=== PATIENT | female | born 1965 | race Caucasian/White ===

== ENCOUNTER → 2023-09-23 15:59 | Outpatient (CLI) | payer BC, SELFPAY ==
--- NOTE | ~2023-09-23 | MM_ITS ---
EXAMINATION: MM screening marcelina BI w meli HISTORY: Screening mammogram TECHNIQUE: Craniocaudal and mediolateral oblique 3-D tomosynthesis images were obtained and synthetic 2-D images were generated. CAD analysis was submitted and interpreted. COMPARISON: No prior mammogram is available for comparison at this institution. BREAST PARENCHYMAL COMPOSITION: The breasts are almost entirely fatty. FINDINGS: RIGHT BREAST: There is a low-density mass in the anterior third of the outer breast 4 cm from the nip ple. LEFT BREAST: No suspicious mass, calcification, or architectural distortion are identified to suggest malignancy. IMPRESSION: 1. Right breast mass which may represent the patient's baseline however no comparison is currently av ailable. 2. Comparison with prior mammograms is necessary. BI-RADS Category 0: Incomplete: Needs comparison with prior mammograms. Reviewed, dictated and finalized at location A. PRIOR AUTHORIZATION IMPRESSION: 1. Right breast mass which may represent the patient's baseline however no comp arison is currently available. 2. Comparison with prior mammograms is necessary. BI-RADS Category 0: Incomplete: Needs comparison with prior mammograms.
== END ==
PROVIDERS: PCP Family Medicine; Visit Provider Nurse Practitioner Obstetrics & Gynecology
DX: Z12.31 Encounter for screening mammogram for malignant neoplasm of breast (principal); R92.8 Other abnormal and inconclusive findings on diagnostic imaging of breast
CPT/HCPCS: 77063; 77067

== ENCOUNTER 2024-09-20 01:25 | Day surgery (SDC) | payer BC, SELFPAY ==
[2024-09-10 10:13] VITALS: BMI 32.1
[2024-09-20 07:53] VITALS: BP 140/80; PULSE 76; RESP 18; TEMP 36.2; O2SAT 98
[2024-09-20 08:05] LABS: Glucose Point of Care 132 mg/dl (65-105)
[2024-09-20] MEDS: LACTATED RINGERS 1,000 ML 150 ML IV CONT (08:05)
--- NOTE | 2024-09-20 08:23 | PM.HPGS ---
History of Present Illness History of Present Illness Consent: Risks, benefits, and alternatives have been discussed and questions answered. Patient agrees to proceed with procedure. Chief complaint: Neoplasm screening Narrative: Qian Adams is a 59 year old female here for screening colonoscopy, last one 2013 Review of Systems Review of Systems: All systems reviewed & are unremarkable except as noted in HPI and below PMFSH Past Medical History Medical History (Updated 09/20/24 @ 08:23 by Louie Nino MD) Anxiety Colon cancer screening Diabetes type 2, controlled History of thyroid cancer Hyperlipidemia Hypertension ANURAG (obstructive sleep apnea) Palpitations Surgical History Surgical History (Updated 09/19/24 @ 10:08 by Joey Bruce DO) History of appendectomy History of History of thyroidectomy Family History Family History (Updated 07/09/12 @ 09:20 by DOCTOR UNKNOWN) Other Diabetes mellitus Family history of cardiovascular disease Social History Social History Smoking status: Never smoker Alcohol intake: current Living arrangements: with family Spiritual care concerns: No Meds Home Medications and Allergies Home Medications Medication Instructions Recorded Confirmed Type Juice Plus multivitamin 1 tab-cap PO DAILY 09/10/24 09/20/24 History cholecalciferol (vitamin D3) 50 50 mcg PO DAILY 09/10/24 09/20/24 History mcg (2,000 unit) capsule (Vitamin D3) levothyroxine 112 mcg tablet 112 mcg PO DAILY 09/10/24 09/20/24 History (Synthroid) lisinopril 10 mg tablet 10 mg PO DAILY 09/10/24 09/20/24 History metformin 500 mg tablet,extended 500 mg PO BID 09/10/24 09/20/24 History release 24 hr montelukast 10 mg tablet 10 mg PO DAILY 09/10/24 09/20/24 History omeprazole 40 mg capsule,delayed 40 mg PO DAILY 09/10/24 09/20/24 History release rosuvastatin 20 mg tablet 20 mg PO DAILY 09/10/24 09/20/24 History venlafaxine 75 mg capsule,extended 75 mg PO DAILY 09/10/24 09/20/24 History release 24 hr Allergies Allergy/AdvReac Type Severity Reaction Status Date / Time morphine Allergy Severe ITCHING Verified 09/20/24 07:52 latex Allergy Unknown Itching Verified 09/20/24 07:52 Vital Signs Vital Signs - 24 hr 09/20/24 07:53 Temperature 97.1 F L Pulse Rate 76 Respiratory Rate 18 Blood Pressure 140/80 Pulse Oximetry 98 Oxygen Delivery Room Air Exam Const: General: comfortable and no acute distress HENMT: Face/Nose/Sinus: Normal nares present Eyes: General: appearance normal, both eyes and all related structures Neck: Neck: no JVD Resp: Auscultation: clear to auscultation bilaterally Cardio: Rate: regular rate Rhythm: regular rhythm GI: Inspection: non-distended GI Palp: Yes Soft to palpation Skin: General skin exam: normal color Neuro: General: gait normal Speech: normal speech Extrem: General: normal to inspection Psych: Mental Status: mental status grossly normal Assessment and Plan Assessment and plan (1) Colon cancer screening: Code(s): Z12.11 - Encounter for screening for malignant neoplasm of colon Status: Acute Assessment and Plan: colonoscopy
--- NOTE | 2024-09-20 08:24 | P.PNAN_ITS ---
Anes - Initial Pre Proc Eval Procedure: Operation Date: 09/20/24 09:00 Proposed Procedures p Screening Colonoscopy - Louie Nino MD Date/Time: 09/20/24 08:24 Surgeon: Louie Nino MD Pre Op Diagnosis: Neoplasm screening Patient Data Age: 59 Gender: F Height: 1.7 m Weight: 90.9 kg Last Vital Signs Temp 36.2 C L 09/20/24 07:53 Pulse 76 09/20/24 07:53 Resp 18 09/20/24 07:53 BP 140/80 09/20/24 07:53 Pulse Ox 98 09/20/24 07:53 O2 Del Method Room Air 09/20/24 07:53 Allergies Allergy/AdvReac Type Severity Reaction Status Date / Time morphine Allergy Severe ITCHING Verified 09/20/24 07:52 latex Allergy Unknown Itching Verified 09/20/24 07:52 Home Medications Medication Instructions Recorded Confirmed Type Juice Plus multivitamin 1 tab-cap PO DAILY 09/10/24 09/20/24 History cholecalciferol (vitamin D3) 50 50 mcg PO DAILY 09/10/24 09/20/24 History mcg (2,000 unit) capsule (Vitamin D3) levothyroxine 112 mcg tablet 112 mcg PO DAILY 09/10/24 09/20/24 History (Synthroid) lisinopril 10 mg tablet 10 mg PO DAILY 09/10/24 09/20/24 History metformin 500 mg tablet,extended 500 mg PO BID 09/10/24 09/20/24 History release 24 hr montelukast 10 mg tablet 10 mg PO DAILY 09/10/24 09/20/24 History omeprazole 40 mg capsule,delayed 40 mg PO DAILY 09/10/24 09/20/24 History release rosuvastatin 20 mg tablet 20 mg PO DAILY 09/10/24 09/20/24 History venlafaxine 75 mg capsule,extended 75 mg PO DAILY 09/10/24 09/20/24 History release 24 hr Laboratory Tests 09/20/24 08:02 POC Capillary Glucose 132 H mg/dl (65-105) Patient hx anesthesia problems: none Family hx anesthesia problems: none Results Review: All pre-operative results and documents have been reviewed as part of the pre- operative evaluation. [facility] Past Medical History Medical History Anxiety Diabetes type 2, controlled History of thyroid cancer Hyperlipidemia Hypertension ANURAG (obstructive sleep apnea) Palpitations Surgical History Surgical History History of appendectomy History of History of thyroidectomy Family History Family History Other Diabetes mellitus Family history of cardiovascular disease Social History Social History Smoking status: Never smoker Alcohol intake: current Living arrangements: with family Spiritual care concerns: No Anes - Eval Final PreProcedure Day of Procedure 09/20/24 08:24 Patient weight: obese Heart: regular rate and rhythm Lungs: clear to auscultation Airway: Mallampati scale class II Neurological: alert and oriented Last oral intake: >/= 8 hours ASA classification: III Emergent: no Anesthetic plan: proceed Anesthesia type and monitoring: general GIVS Results Review: All pre-operative results and documents have been reviewed as part of the pre- operative evaluation. Informed Consent: The patient's anesthetic plan and its attendant risks and benefits were discussed with the patient/family/POA. Questions were solicited and answers provided to the satisfaction of the patient/family/POA.
[2024-09-20 08:42] VITALS: BP 120/75; PULSE 86; RESP 16; O2SAT 94
[2024-09-20 08:52] VITALS: BP 121/75; PULSE 83; RESP 21; O2SAT 98
[2024-09-20 09:02] VITALS: BP 131/86; PULSE 80; RESP 18; O2SAT 100
== END 2024-09-20 09:08 | disposition home or self-care (01) ==
PROVIDERS: PCP Family Medicine; Referring Provider Nurse Practitioner Family; Visit Provider Internal Medicine Gastroenterology
PROC: 0DJD8ZZ Inspection of Lower Intestinal Tract, Via Natural or Artificial Opening Endoscopic (ICD-10-PCS; CPT 45378; principal; 2024-09-20 09:00)
DX: Z12.11 Encounter for screening for malignant neoplasm of colon (principal); E11.9 Type 2 diabetes mellitus without complications; E78.5 Hyperlipidemia, unspecified; I10 Essential (primary) hypertension; G47.33 Obstructive sleep apnea (adult) (pediatric); F41.9 Anxiety disorder, unspecified; E89.0 Postprocedural hypothyroidism; E66.9 Obesity, unspecified; Z68.31 Body mass index [BMI] 31.0-31.9, adult; Z79.84 Long term (current) use of oral hypoglycemic drugs
CPT/HCPCS: 45378; 82948; J2704; J7120

== ENCOUNTER 2024-11-05 15:15 | Outpatient (CLI) | payer BC, SELFPAY ==
--- NOTE | ~2024-11-05 | MM_ITS ---
EXAMINATION: MM screening marcelina BI w meli HISTORY: Screening TECHNIQUE: Craniocaudal and mediolateral oblique 3-D tomosynthesis images were obtained and synthetic 2-D images were generated. CAD analysis was submitted and interpreted. COMPARISON: 09/23/2023 and dating back to 09/21/2020 BREAST PARENCHYMAL COMPOSITION: There are scattered areas of fibroglandular density. FINDINGS: Punctate calcifications detected bilaterally, stable and benign in appearance, dermal in or igin. Stable parenchymal pattern without suspicious microcalcifications, architectural distortion, discrete masses or significant asymmetry. IMPRESSION: 1. No mammographic evidence of malignancy. 2. Recommend routine screening mammography in one year. Reviewed, dictated and finalized at location A. P CAPTAIN
== END 2024-11-05 15:16 | disposition home or self-care (01) ==
PROVIDERS: PCP Family Medicine; Visit Provider Obstetrics & Gynecology
DX: Z12.31 Encounter for screening mammogram for malignant neoplasm of breast (principal)
CPT/HCPCS: 77063; 77067

== ENCOUNTER 2025-11-07 13:46 | Outpatient (CLI) | payer BC, SELFPAY ==
--- OUTSIDE RECORDS SUMMARY | 2024-08-08 03:00 | XMS_ITS ---
Author Organization [facility] Address [address] [place] [address] Care Team Providers Care Sybase Developer Name Role Phone Dr. Bridgette Rodriguez Primary Care Provider [phone] Migration, Provider Unavailable Unavailable REASON FOR VISIT EMR-[facility] Immunizations Vaccine Route Administration Date Status Comme nts Pfizer-[employer]ion[employer] Covid-19 Vaccine 1st dose Unknown 08/08/2024 [facility]ered [facility] VFC Code: : Influenza, seasonal, injectable, preservative free, 3 yrs and above Unknown 08/08/2024 [facility] VFC Code: : Encounters Encounter Location Date Provider Diagnosis [facility] [address] [place] [address] 08/08/2024 Provider Migration Plan Of Treatment Next Appt Details Provider Name:Dr. Bridgette chapman, 04/05/2026 11:00:00 AM, [address] [facility] [facility], [place], [address], [phone] Progress Notes * CHICOJATINJayyB:1965 (60 yo F)Acc No.[id number]:08/08/2024 Patient: Qian Stephenson Provider: Fidelina smith Migration :1965 A ge:59 Y S ex:Female Date:08/08/2024 Phone: Address:[address] [place], [place]-[address] Pcp:Dr. 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
--- OUTSIDE RECORDS SUMMARY | 2024-09-28 09:00 | XMS_ITS ---
Author Organization [facility] Address [address] [place] [address] Care Team Providers Care Yard Hand Name Role Phone Dr. Bridgette Rodriguez Primary Care Provider [phone] Bridgette Zavala Unavailable [phone] REASON FOR VISIT Med Check Vital Signs Temperature 97.2 degrees Fahrenheit 09/28/20 24 Blood pressure systolic 128 mm Hg 09/28/20 24 Blood pressure diastolic 78 mm Hg 024 Heart Rate 85 /min 09/28/2024 Weight 205.29 lbs 09/28/2024 Oximetry 95 % 09/28/2024 Weight-kg 93.12 kg 09/28/2024 Encounters Encounter Location Date Provider Diagnosis [address] [address] 09/28/2024 Bridgette Zavala Mixed hyperlipidemia E78.2 ; Type 2 diabetes mellitus without complications E11.9 ; Unspecified mononeuropathy of bilateral lower limbs G57.93 ; Essential (primary) hypertension I10 ; Hypothyroidism, unspecified E03.9 ; Anxiety disorder, unspecified F41.9 ; Other obesity due to excess calories E66.09 and Gastro-esophageal reflux disease without esophagitis K21.9 Assessments Encounter Date Diagnosis (ICD Code) Assessment Notes Treatment Notes Treatment Clinical Notes Section Notes 09/28/2024 Mixed hyperlipidemia (ICD-10 - E78.2) 09/28/2024 Type 2 diabetes mellitus without complications (ICD-10 - E11.9) 09/28/2024 Unspecified mononeuropathy of bilateral lower limbs (ICD-10 - G57.93) 09/28/2024 Essential (primary) hypertension (ICD-10 - I10) 09/28/2024 Hypothyroidism, unspecified (ICD-10 - E03.9) 09/28/2024 Anxiety disorder, unspecified (ICD-10 - F41.9) 09/28/2024 Other obesity due to excess calories (ICD-10 - E66.09) 09/28/2024 Gastro-esophageal reflux disease without esophagitis (ICD-10 - K21.9) Plan Of Treatment Next Appt Details Provider Name:Dr. Bridgette chapman, 04/05/2026 11:00:00 AM, [address], [place], [address], [phone] Progress Notes * Yosi VERASaDOB:1965 (60 yo F)Acc No.[id number]:09/28/2024 Patient: Qian Stephenson Provider: Savana Zavala NP :1965 A ge:59 Y S ex:Female Date:09/28/2024 Phone: Address:[address] [place] [id number] Pcp:Dr. Bridgette Rodriguez Subjective: * Chief Complaints: * M ed Check Objective: * Vitals: B P: 128/78 mm Hg, HR: 85 /min, Temp: 97.2 F, Oxygen sat %: 95 %, Wt: 205.29 lbs, Wt-k.12 kg. Past Vitals:* 02/09/2024 BP: 122/76 mm Hg, HR: 70 /mi n, Oxygen sat %: 96 %, Wt: 209.99 lbs, Wt-k.25 kg * 08/13/2023 BP: 130/80 mm Hg, HR: 72 /mi n, Oxygen sat %: 98 %, Wt: 206.99 lbs, Wt-k.89 kg Assessment: * Assessment: 1. H ypothyroidism, unspecified - E03.9 S pecify :Src Diagnosis Name: Hypothyroidism, unspecified type 2 . T ype 2 diabetes mellitus without complications - E11.9 S pecify :Src Diagnosis Name: (E11.9 - ) Type 2 diabetes mellitus without complications 3 . O ther obesity due to excess calories - E66.09 S pecify :Src Diagnosis Name: Class 1 obesity due to excess calories with serious comorbidity and body mass index (BMI) of 30.0 to 30.9 in adult 4 . M ixed hyperlipidemia - E78.2 S pecify :Src Diagnosis Name: (E78.2 - ) Mixed hyperlipidemia 5 . A nxiety disorder, unspecified - F41.9 S pecify :Src Diagnosis Name: Anxiety and depression 6 . E ssential (primary) hypertension - I10 7 . G mike-esophageal reflux disease without esophagitis - K21.9 S pecify :Src Diagnosis Name: (K21.9 - ) Gastro-esophageal reflux disease without esophagitis 8 . U nspecified mononeuropathy of bilateral lower limbs - G57.93 ?Specify :Src Diagnosis Name: Neuropathy involving both lower extremities * Electronic signature of Akila Zavala on 11/07/2025 at 01:58 PM PIER WORKER Sign off status: Pending * Provider: Savana Zavala NP Date: 11/28/2023 Generated for Brenda bell/Lewis/Olegario on: 01:58 PM PIER WORKER
--- OUTSIDE RECORDS SUMMARY | 2024-10-09 03:00 | XMS_ITS ---
Author Organization [facility] Address [address] [place] [address] Care Team Providers Care Tax Economist Name Role Phone Dr. Bridgette Rodriguez Primary Care Provider [phone] Migration, Provider Unavailable Unavailable REASON FOR VISIT EMR-Will Encounters Encounter Location Date Provider Diagnosis [facility] [address] [place] [address] 10/09/2024 Provider Migration Plan Of Treatment Medication Medication Name Sig Start Date Stop Date Notes Black Elderberry 460-115 mg Capsule Oral; Duration: 0 04/19/2021 03/04/2022 ,discontinuere ason:Dis continued *Pick strength-form from [employer] for eRX* Venlafaxine HCl ER 75 MG Capsule Extended Release 24 Hour 1 Oral every day; Duration: 90 02/09/2024 02/09/2024 Rx Refill Request,discontinuerea son:Refilled Montelukast Sodium 10 MG Tablet 1 Oral every evening; Duration: 90 08/30/2023 08/30/2023 Rx Refill Request,discontinuerea son:Refilled Zinc oral; Duration: 0 03/05/2022 08/12/2023 ,discon tinuereason:Dis continued *Pick strength-form from [employer] for eRX* Metoprolol Succinate ER 25 MG Tablet Extended Release 24 Hour 1 Oral; Duration: 30 03/05/2022 12/16/2022 ,discontinuereason:D is continued Omeprazole 40 MG Capsule Delayed Release 1 Oral every day; Duration: 90 03/15/2024 03/15/2024 Rx Refill Request,discontinuerea son:Refilled OneTouch Ultra Test ; Duration: 0 09/30/2024 09/30/2024 *Amparo stevens from [facility] for eRx and Interaction Alerts* Medrol 4 MG Tablet Therapy Pack Oral; Duration: 0 12/20/2021 12/20/2021 Lisinopril 10 MG Tablet 1 Oral every day ; Duration: 08/12/2023 08/12/2023 Rx Refill Request,discontinuerea son:Refilled Effexor XR 37.5 MG Capsule Extended Release 24 Hour 1 Oral every day; Duration: 14 04/18/2022 05/01/2022 Venlafaxine HCl ER 37.5 MG Capsule Extended Release 24 Hour 1 Oral every day; Duration: 0 04/19/2021 04/19/2021 ,discontinuereason:D is continued Diclofenac Sodium 75 MG Tablet Delayed Release 1 Oral two times a day; Duration: 03/12/2022 06/09/2022 busPIRone HCl 7.5 MG Tablet 2 Oral three times a day; Duration: 08/24/2021 09/06/2021 ,discontinuereason:D is continued,PRN Reason:for anxiety Crestor 5 MG Tablet 1 Oral every night at bedtime; Duration: 0 04/19/2021 08/09/2021 Rx Refill Request,discontinuerea son:Refilled busPIRone HCl 5 MG Tablet 1-2 Oral two times a day; Duration: 10/02/2021 04/17/2022 ,discontinuereason:D is continued metFORMIN HCl ER 500 MG Tablet Extended Release 24 Hour 1 Oral two times a day; Duration: 12/11/2022 12/11/2022 Rx Refill Request,discontinuerea son:Refilled Zithromax Z-Greg 250 MG Tablet Oral; Duration: 0 10/13/2021 10/21/2021 ,discontinuere ason:Dis continued buPROPion HCl 75 MG Tablet 1 Oral every day; Duration: 04/09/2022 04/17/2022 going back to effexor,discontinuerea son:Discontinued Metoprolol Succinate ER 50 MG Tablet Extended Release 24 Hour 1 Oral every night at bedtime; Duration: 0 10/22/2021 03/04/2022 decreased by cardiology,discontinue reason:Discontinued Rosuvastatin Calcium 5 MG Tablet Oral; Duration: 08/09/2021 03/04/2022 increased to 20mg daily,discontinuereaso n:Discontinued Vitamin C oral; Duration: 0 04/19/2021 02/08/2024 ,discon tinuereason:Dis continued *Pick strength-form from [employer] for eRX* Wellbutrin XL 150 MG Tablet Extended Release 24 Hour 1 Oral every day; Duration: 30 03/12/2022 04/17/2022 ,discontinuereason:D is continued LORazepam 0.5 MG Tablet 1 Oral every day ; Duration: 0 04/18/2022 08/12/2023 ,discontinuereason:D is continued,PRN Reason:for anxiety traMADol HCl 50 MG Tablet 1-2 Oral every 6-8 hours; Duration: 0 12/20/2021 04/17/2022 ,discontinuereason:D is continued,PRN Reason:for pain Aspirin Adult Low Strength 81 MG Tablet Delayed Release 1 Oral every day; Duration: 0 04/19/2021 04/17/2022 ,discontinuereason:D is continued Macrobid 100 MG Capsule 1 Oral every 12 hours; Duration: 7 03/22/2023 03/28/2023 predniSONE 20 MG Tablet 3 Oral every day ; Duration: 3 04/01/2023 04/03/2023 EpiPen 2-Greg 0.3 MG/0.3ML Solution Auto-injector Injection; Duration: 0 05/17/2024 05/17/2024 ALPRAZolam 0.25 MG Tablet 1 or 2 Oral Q6H; Duration: 0 09/17/2021 09/17/2021 Effexor XR 75 MG Capsule Extended Release 24 Hour 1 Oral every day; Duration: 06/26/2022 06/26/2022 Rx Refill Request,discontinuerea son:Refilled Escitalopram Oxalate 10 MG Tablet 1 Oral every day; Duration: 01/07/2022 04/17/2022 going back to effexor,discontinuerea son:Discontinued Next Appt Details Provider Name:Dr. Bridgette chapman, 04/05/2026 11:00:00 AM, [address] [facility], [place], [address], [phone] Progress Notes * Vickie VERAS:1965 (60 yo F)Acc No.[id number]:10/09/2024 Patient: Qian CARDOZO :1965 A ge:59 Y S ex:Female Phone: Address:[address] [place] [address], [place], [address] * Refills Stop Diclofenac Sodium Tablet Delayed Release, 75 MG, Oral, 60, 1, two times a day, 30 Stop Omeprazole Capsule Delayed Release, 40 MG, Oral, 90, 1, every day, 90 Stop metFORMIN HCl ER Tablet Extended Release 24 Hour, 500 MG, Oral, 180, 1, two times a day, 90 Stop Escitalopram Oxalate Tablet, 10 MG, Oral, 90, 1, every day, 90 Stop Montelukast Sodium Tablet, 10 MG, Oral, 90, 1, every evening, 90 Stop Montelukast Sodium Tablet, 10 MG, Oral, 90, 1, every evening, 90 Stop Omeprazole Capsule Delayed Release, 40 MG, Oral, 90, 1, every day, 90 Stop Omeprazole Capsule Delayed Release, 40 MG, Oral, 90, 1, every day, 90 Stop Metoprolol Succinate ER Tablet Extended Release 24 Hour, 25 MG, Oral, 1, 30 Stop OneTouch Ultra Test, 100, 0 Stop ALPRAZolam Tablet, 0.25 MG, Oral, 15, 1 or 2, Q6H, 0 Stop buPROPion HCl Tablet, 75 MG, Oral, 30, 1, every day, 30 Stop Zithromax Z-Greg Tablet, 250 MG, Oral, 6, 0 Stop busPIRone HCl Tablet, 5 MG, Oral, 60, 1-2, two times a day, 30 Stop EpiPen 2-Greg Solution Auto-injector, 0.3 MG/0.3ML, Injection, 0 Stop Lisinopril Tablet, 10 MG, Oral, 90, 1, every day, 90 Stop OneTouch Ultra Test, 100, 0 Stop metFORMIN HCl ER Tablet Extended Release 24 Hour, 500 mg, Oral, 1, every day, 0 Stop Crestor Tablet, 5 MG, Oral, 1, every night at bedtime, 0 Stop Effexor XR Capsule Extended Release 24 Hour, 37.5 MG, Oral, 14, 1, every day, 14 Stop Medrol Tablet Therapy Pack, 4 MG, Oral, 21, 0 Stop Montelukast Sodium Tablet, 10 MG, Oral, 1, every evening, 0 Stop Omeprazole Capsule Delayed Release, 40 MG, Oral, 90, 1, every day, 90 Stop Venlafaxine HCl ER Capsule Extended Release 24 Hour, 75 MG, Oral, 1, every day, 0 Stop Venlafaxine HCl ER Capsule Extended Release 24 Hour, 75 MG, Oral, 90, 1, every day, 90 Stop Venlafaxine HCl ER Capsule Extended Release 24 Hour, 75 MG, Oral, 90, 1, every day, 90 Stop Black Elderberry Capsule, 460-115 mg, Oral, 0 Stop Escitalopram Oxalate Tablet, 10 MG, Oral, 30, 0 Stop Lisinopril Tablet, 10 MG, Oral, 1, every day, 0 Stop Medrol Tablet Therapy Pack, 4 MG, Oral, 21, 0 Stop Metoprolol Succinate ER Tablet Extended Release 24 Hour, 50 MG, Oral, 1, every night at bedtime, 0 Stop ALPRAZolam Tablet, 0.25 MG, Oral, 15, 1 or 2, Q6H, 0 Stop Escitalopram Oxalate Tablet, 10 MG, Oral, 30, 1, every day, 30 Stop Macrobid Capsule, 100 MG, Oral, 14, 1, every 12 hours, 7 Stop Vitamin C, oral, 0 Stop Wellbutrin XL Tablet Extended Release 24 Hour, 150 MG, Oral, 30, 1, every day, 30 Stop Metoprolol Succinate ER Tablet Extended Release 24 Hour, 25 MG, Oral, 1, every night at bedtime, 0 Stop Venlafaxine HCl ER Capsule Extended Release 24 Hour, 75 MG, Oral, 90, 1, every day, 90 Stop buPROPion HCl Tablet, 75 MG, Oral, 30, 1, every day, 30 Stop Effexor XR Capsule Extended Release 24 Hour, 75 MG, Oral, 90, 1, every day, 90 Stop Lisinopril Tablet, 10 MG, Oral, 90, 1, every day, 90 Stop predniSONE Tablet, 20 MG, Oral, 18, 3, every day, 3 Stop Lisinopril Tablet, 10 MG, Oral, 90, 1, every day, 90 Stop traMADol HCl Tablet, 50 MG, Oral, 15, 1-2, every 6-8 hours, 0 Stop Aspirin Adult Low Strength Tablet Delayed Release, 81 MG, Oral, 1, every day, 0 Stop buPROPion HCl Tablet, 75 MG, Oral, 7, 1, every day, 7 Stop busPIRone HCl Tablet, 7.5 MG, Oral, 90, 1, three times a day, 30 Stop metFORMIN HCl ER Tablet Extended Release 24 Hour, 500 MG, Oral, 180, 1, two times a day, 90 Stop EpiPen 2-Greg Solution Auto-injector, 0.3 MG/0.3ML, Injection, 2, 0 Stop Escitalopram Oxalate Tablet, 10 MG, Oral, 30, 1, every day, 30 Stop LORazepam Tablet, 0.5 MG, Oral, 10, 1, every day, 0 Stop Venlafaxine HCl ER Capsule Extended Release 24 Hour, 75 MG, Oral, 90, 1, every day, 90 Stop Montelukast Sodium Tablet, 10 MG, Oral, 90, 1, every evening, 90 Stop Omeprazole Capsule Delayed Release, 40 MG, Oral, 1, every day, 0 Stop Zinc, oral, 0 Stop metFORMIN HCl ER Tablet Extended Release 24 Hour, 500 mg, Oral, 180, 1, two times a day, 90 Stop metFORMIN HCl ER Tablet Extended Release 24 Hour, 500 mg, Oral, 180, 1, two times a day, 90 Stop metFORMIN HCl ER Tablet Extended Release 24 Hour, 500 MG, Oral, 180, 1, two times a day, 90 Stop Venlafaxine HCl ER Capsule Extended Release 24 Hour, 75 MG, Oral, 90, 1, every day, 90 Stop busPIRone HCl Tablet, 7.5 MG, Oral, 90, 2, three times a day, 30 Stop Venlafaxine HCl ER Capsule Extended Release 24 Hour, 37.5 MG, Oral, 1, every day, 0 Stop Venlafaxine HCl ER Capsule Extended Release 24 Hour, 75 MG, Oral, 90, 90 Stop Venlafaxine HCl ER Capsule Extended Release 24 Hour, 75 MG, Oral, 90, 1, every day, 90 Stop Effexor XR Capsule Extended Release 24 Hour, 75 MG, Oral, 30, 1, every day, 30 Stop Escitalopram Oxalate Tablet, 10 MG, Oral, 30, 1, every day, 30 Stop Rosuvastatin Calcium Tablet, 5 MG, Oral, 90, 90 Subjective: * Chief Complaints: * E MR-Will Objective: Past Vitals:* 09/28/2024 BP: 128/78 mm Hg, HR: 85 /mi n, Oxygen sat %: 95 %, Wt: 205.29 lbs, Wt-k.12 kg * 02/09/2024 BP: 122/76 mm Hg, HR: 70 /mi n, Oxygen sat %: 96 %, Wt: 209.99 lbs, Wt-k.25 kg * * Date:
--- OUTSIDE RECORDS SUMMARY | 2024-10-10 03:00 | XMS_ITS ---
Author Organization [facility] dicine Address [address] [place] [address] Care Team Providers Care Behavioral Health Care Manager Name Role Phone Dr. Bridgette Rodriguez Primary Care Provider [phone] Migration, Provider Unavailable Unavailable Allergies Allergen (clinical drug ingredient) Drug/Non Drug Allergy documented on EMR Reaction Allergy Type Onset Date Status Latex Latex (uncoded) Unknown Allergy 04/18/2022 Act mike Honey Bee Venom swelling Drug Allergy 04/19/2021 Active metoprolol Metoprolol hair loss Drug Allergy 12/17/2022 Acti ve REASON FOR VISIT EMR-Will Medications Medication SIG (Take, Route, Frequency, Duration) Notes Start Date End Date Status Vitamin D3 50 MCG (1999 UT) Tablet Oral; Duration: 0 04/19/2021 Active Lisinopril 10 MG Tablet 1 Oral every day; Duration: 08/05/2024 11/02/2024 Active Montelukast Sodium 10 MG Tablet 1 Oral every evening; Duration: 08/25/2024 08/19/2025 Active Rosuvastatin Calcium 20 MG Tablet 1 Oral every night at bedtime; Duration: 0 10/22/2021 Active metFORMIN HCl ER 500 MG Tablet Extended Release 24 Hour 1 Oral two times a day; Duration: 12/02/2023 11/25/2024 Active Omeprazole 40 MG Capsule Delayed Release 1 Oral every day; Duration: 09/04/2024 03/02/2025 Active Venlafaxine HCl ER 75 MG Capsule Extended Release 24 Hour 1 Oral every day; Duration: 08/06/2024 02/01/2025 Active Synthroid 137 MCG Tablet Oral; Duration: 0 04/19/2021 Active Multi Vitamin oral; Duration: 0 *Pick strength-form from [facility] for eRX* 04/18/2022 Active Social History Social History Additional Details Category Social Info Options Details Migrated Social History Migrated Social History 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 Bridgette chapman, 04/05/2026 11:00:00 AM, [address], [place], [address], [phone] Progress Notes * Yosi VERASaDOB:1965 (60 yo F)Acc No.[id number]:10/10/2024 Patient: Qian CARDOZO :1965 A ge:59 Y S ex:Female Phone: Address:[facility] [employer] , [place], [address] Subjective: * Chief Complaints: * E MR-Will * Surgical History: section delivery _ Colonoscopy ,notes : 2013 _ Thyroidectomy ,notes : 04/2013 _ Cholecystectomy ,notes : 06/2012 _ Appendectomy ,notes : 09/2012 _ * Family History: F ather: Diabetes mellitus Type 2, H yperlipidemia, H ypertension, S udden Cardiac . M other: Cholelithiasis, H yperlipidemia, H ypertension, H ypothyroidism. G randmother: Maternal Grandmother: Deep vein thrombosis. B rother: Anxiety, C oronary Artery Disease (CAD). S on: Anxiety. 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 * Medications: T akingVitamin D3 50 MCG (1999) Tablet Oral Rosuvastatin Calcium 20 MG Tablet 1 Oral every night at bedtime Venlafaxine HCl ER 75 MG Capsule Extended Release 24 Hour 1 Oral every day , stop date 02/01/2025metFORMIN HCl ER 500 MG Tablet Extended Release 24 Hour 1 Oral two times a day , stop date 11/25/2024Montelukast Sodium 10 MG Tablet 1 Oral every evening , stop date 08/19/2025Synthroid 137 MCG Tablet Oral Omeprazole 40 MG Capsule Delayed Release 1 Oral every day , stop date 03/02/2025Multi Vitamin oral , Notes to Pharmacist: *Pick strength-form from [facility] for eRX*Lisinopril 10 MG Tablet 1 Oral every day , stop date 11/02/2024Taking Vitamin D3 50 MCG (1999 UT) Tablet Oral Taking Rosuvastatin Calcium 20 MG Tablet 1 Oral every night at bedtime Taking Venlafaxine HCl ER 75 MG Capsule Extended Release 24 Hour 1 Oral every day , stop date 02/01/2025Taking metFORMIN HCl ER 500 MG Tablet Extended Release 24 Hour 1 Oral two times a day , stop date 11/25/2024Taking Montelukast Sodium 10 MG Tablet 1 Oral every evening , stop date 08/19/2025Taking Synthroid 137 MCG Tablet Oral Taking Omeprazole 40 MG Capsule Delayed Release 1 Oral every day , stop date 03/02/2025Taking Multi Vitamin oral , Notes to Pharmacist: *Pick strength-form from [facility] for [facility]*Taking Lisinopril 10 MG Tablet 1 Oral every day , stop date 11/02/2024 * Allergies: L atex: Allergy - Onset Date 04/18/2022Honey Bee Venom: swelling - Allergy - Onset Date 04/19/2021Metoprolol: hair loss - Allergy - Onset Date 12/17/2022 Objective: Past Vitals:* 09/28/2024 BP: 128/78 mm Hg, HR: 85 /mi n, Oxygen sat %: 95 %, Wt: 205.29 lbs, Wt-k.12 kg * 02/09/2024 BP: 122/76 mm Hg, HR: 70 /mi n, Oxygen sat %: 96 %, Wt: 209.99 lbs, Wt-k.25 kg * * Date:
--- NOTE | ~2025-11-07 | MM_ITS ---
EXAMINATION: MM screening marcelina BI w meli HISTORY: Screening. TECHNIQUE: Craniocaudal and mediolateral oblique 3-D tomosynthesis images were obtained and synthetic 2-D images were generated. CAD analysis was submitted and interpreted. COMPARISON: 2023, 2022, and 2021 BREAST PARENCHYMAL COMPOSITION: Not Dense: There are scattered areas of fibroglandular tissue FINDINGS: No suspicious masses are seen. There are no suspicious calcifications. No unexplained architectural distortion is seen. There are no skin or nipple abnormalities identified. There is no adenopathy seen on the images submitted. IMPRESSION: No mammographic evidence to suggest malignancy is seen. The patient may return to screening mammography as per ACR guidelines. BI-RADS 1 - Negative. Reviewed, dictated and finalized at location C. TIC SURGERY COORDINATOR
--- OUTSIDE RECORDS SUMMARY | 2025-11-07 13:59 | XMS_ITS | Clinical Summary ---
Author Organization [facility] Address [address] [place] [address] Care Team Providers Care Software Tester Name Role Phone Abram Mohan MD Primary Care Provider Uziel Cerna MD, Barry Unavailable [phone] Allergies Active Allergy Reactions Criticality Noted Date Comments Atorvastatin Myalgias 04/19/2016 Bee Venom Anaphylaxis High 01/10/2016 Latex Unknown Low 12/06/2013 Skin irritation. Medications metFORMIN ER, OSM, 500 MG 24 hr tablet Take 2 tablets (1,000 mg total) by mouth daily. 10/16/2011 Active Multiple Vitamins-Mineral s (MULTIVITAMIN ADULT OR) Take by mouth daily. 03/16/2008 Active omeprazole 40 MG capsule Take 1 capsule (40 mg total) by mouth daily. 04/28/2021 Active Nutritional Supplements (JUICE PLUS FIBRE) Liquid Active montelukast 10 MG tablet Take 1 tablet (10 mg total) by mouth daily. 09/05/2021 Active SYNTHROID 112 MCG tablet Take 1 tablet (112 mcg total) by mouth before breakfast. 09/19/2022 Active venlafaxine XR (EFFEXOR-XR) 37.5 MG 24 hr capsule Take 1 capsule (37.5 mg total) by mouth daily. 04/18/2022 Active lisinopril (PRINIVIL) 10 MG tablet Take 1 tablet (10 mg total) by mouth daily. Active rosuvastatin (CRESTOR) 20 MG tablet Take 1 tablet (20 mg total) by mouth nightly at bedtime. 90 tablet 3 05/23/2025 Active Active Problems Problem Noted Date Diagnosed Date NSVT (nonsustained ventricular tachycardia) 07/13 Palpitations 04/14/2018 Dyslipidemia HTN (hypertension) Family History Medical History Relation Comments Breast Cancer Maternal Aunt Breast Cancer Maternal cousin Relation Status Comments Maternal Aunt Maternal cousin Social History Tobacco Use Types Packs/Day Years Used Date Smoking Tobacco: Never Smokeless Tobacco: Never Comments No Sex and Gender Information Value Date Recorded Sex Assigned at Not on file Legal Sex Female 10:29 PM CDT Gender Identity Female 01/28/2022 9:06 AM CDT Sexual Orientation Not on file Last Filed Vital Signs Vital Sign Reading Time Taken Comments Blood Pressure 120/86 04/14/2025 1:21 PM CDT Pulse 72 04/14/2025 1:21 PM CDT Temperature 37.1 C (98.8 F) 01/14/2022 3:25 PM AUTOMOTIVE REFINISH TECHNICIAN Respiratory Rate 16 04/14/2025 1:21 PM CDT Oxygen Saturation 94% 04/14/2025 1:21 PM CDT Inhaled Oxygen Concentration - - Weight 90.9 kg (200 lb 6.4 oz) 04/14/2025 1:21 P M CDT Height 171.5 cm (5' 7.5) 04/14/2025 1:21 PM CDT Body Mass Index 30.92 04/14/2025 1:21 PM CDT Plan of Treatment Upcoming Encounters Date Type Department Care Team (Late st Contact Info) Description 04/27/2026 11:00 AM CDT Office Visit [facility] [place] [address] Calvin Thompson NP [address] [address] Health Maintenance Due Date Last Done Comments Cervical Cancer Screening Pap Smear (Age 30 to 64) Every 3 Years 1965 Colorectal Cancer Screening Colonoscopy (10 Years) 1965 Annual Physical 1966 Hepatitis C 1981 Cervical Cancer Screening Pap with HPV Testing (Age 30 to 64) Every 5 Years 1993 Cervical Cancer Screening with HPV 1993 Pneumococcal Vaccine: 50+ Years (2 of 2 - PCV) 12/25/2018 12/25/2017 Mammogram Screening 10/14/2024 10/14/2022, 08/13/2013, 04/02/2013, Additional history exists COVID-19 Vaccine ( season) 2025 08/08/2024, 11/15/2023, 08/21/2022, Additional history exists Influenza Adult (#1) 2025 08/08/2024, 08/24/2023, 08/21/2022, Additional history exists DTaP, Tdap and Td Vaccines (5 - Td or Tdap) 12/26/2034 12/26/2024, 11/13/2020, 09/19/2020, Additional history exists RSV Immunization or 60+ Years (1 - 1-dose 75+ series) 2038 Hepatitis A Vaccines Aged Out 11/26/2002, 03/16/20 02 No longer eligible based on patient's age to complete this topic Zoster Vaccines Completed 10/05/2022, 03/10/2022 Meningococcal B Vaccine Aged Out No l onger eligible based on patient's age to complete this topic Meningococcal Vaccine Aged Out No veronika curtis eligible based on patient's age to complete this topic RSV Immunizations Under 20 Months Aged Out No longer eligible based on patient's age to complete this topic Procedures Procedure Name Priority Date/Time Associated Diagnosis Comments HEALTH FAIR WITH LIPID Routine 08/30/2025 6:00 AM CDT [facility] HEMOGLOBIN A1C Routine 08/30/2025 6:00 AM CDT MG SCREENING W GILLES ZINA DIGI Routine 10/14/2022 3:52 PM AUTOMOTIVE REFINISH TECHNICIAN Encounter for screening mammogram for malignant neoplasm of breast from Last 3 Months or Most Recently Relevant to Health Maintenance Results * (ABNORMAL) HEALTH FAIR WITH LIPID (08/30/2025 6:00 AM CDT) GLUCOSE 130(H) 70 - 99 MG/DL 08/30/2025 6:31 PM CDT [facility] BUN 13 7 - 18 MG/DL 08/30/2025 6:31 PM CDT [facility] SODIUM S/P/B 138 136 - 145 MMOL/L 08/30/2025 6:31 PM CDT [facility] POTASSIUM S/P/B 4.0 3.5 - 5.1 MMOL/L 08/30/2025 6:31 PM CDT [facility] CHLORIDE S/P/B 103 97 - 115 MMOL/L 08/30/2025 6:31 PM CDT [facility] CO2 29.0 21 - 32 MMOL/L 08/30/2025 6:31 PM CDT [facility] CREATININE S/P/B 0.76 0.55 - 1.02 MG/DL 08/30/2025 6:31 PM CDT [facility] CALCIUM S/P/B 9.2 8.5 - 10.1 MG/DL 08/30/2025 6:31 PM CDT [facility] ALBUMIN S/P/B 3.9 3.4 - 5.0 G/DL 08/30/2025 6:31 PM CDT [facility] TOTAL PROTEIN S/P/B 7.5 6.4 - 8.2 G/DL 08/30/2025 6:31 PM T [facility] BILIRUBIN TOTAL S/P/B 0.9 0.2 - 1.2 MG/DL 08/30/2025 6:31 PM CDT [facility] Comment: THIS ASSAY IS NOT RECOMMENDED FOR PATIENTS UNDERGOING TREATMENT WITH ELTROMBOPAG DUE TO THE POTENTIAL FOR FALSELY ELEVATED RESULTS. ALT 27 14 - 55 U/L 08/30/2025 6:31 PM CDT [facility] AST 23 15 - 37 U/L 08/30/2025 6:31 PM T [facility] ALKALINE PHOSPHATASE S/P/B 78 50 - 136 U/L 08/30/2025 6:31 PM [facility] A/G RATIO 1.1 1.0 - 2.0 RATIO 08/30/2025 6:31 PM [facility] GFR ESTIMATE 89(L) >90 ML/MIN/1. 73 M2 08/30/2025 6:31 PM [facility] Comment: NOTE: eGFR is not calculated for patients <18 years of age or gender unknown. This is an estimated GFR calculation using the new CKD EPI creatinine equation without race and so does not require a correction factor for race. This estimated GFR should not be used for calculating drug doses. CHOLESTEROL 133 <200 MG/DL 08/30/2025 6:31 PM [facility] TRIGLYCERIDES 132 <150 MG/DL 08/30/2025 6:31 PM [facility] HDL 52 >40.0 MG/DL 08/30/2025 6:31 PM [facility] LDL (CALCULATED) 55 <100 MG/DL 08/30/2025 6:31 PM [facility] Comment:CALCULATED USING THE FRIEDEWALD EQUATION NON HDL CHOLESTEROL 81 <130 MG/DL 08/30/2025 6:31 PM [facility] CHOL/HDL RATIO 2.6 0.0 - 4.5 08/30/2025 6:31 PM [facility] VLDL CALCULATION 26 5 - 55 MG/DL 08/30/2025 6:31 PM [facility] LIPID INTERPRETATION 08/30/2025 6:31 PM [facility] Comment: NIH CONCENSUS REPORT RECOMMENDATIONS: ADULT CHILD LOW RISK: CHOLESTEROL <200 <170 TRIGLYCERIDE <150 --- HDL >=60 --- LDL <100 <110 BORDERLINE: CHOLESTEROL 200-239 170-199 TRIGLYCERIDE 150-199 --- HDL 40-59 --- LDL 100-159 110-129 HIGH RISK: CHOLESTEROL >=240 >=200 TRIGLYCERIDE >=200 --- HDL <40 --- LDL >=160 >=130 TSH 0.288(L) 0.358 - 3.74 uIU/ML 08/30/2025 6:31 PM CDT [facility] Comment: HIGH DOSES OF BIOTIN MAY INTERFERE WITH THIS TEST RESULT. CORRELATION TO CLINICAL HISTORY AND PRESENTATION RECOMMENDED. WBC 8.00 4.50 - 11.00 x10'3/uL 08/30/2025 8:26 AM CDT [facility] RBC 4.25 4.00 - 5.20 x10'6/uL 08/30/2025 8:26 AM CDT [facility] HGB 12.4 12.0 - 16.0 G/DL 08/30/2025 8:26 AM CDT [facility] HCT 37.5(L) 38.0 - 48.0 % 08/30/2025 8:26 AM CDT [facility] MCV 88.2 80.0 - 100.0 FL 08/30/2025 8:26 AM CDT [facility] MCH 29.2 26.0 - 34.0 PG 08/30/2025 8:26 AM CDT [facility] MCHC 33.1 31.0 - 37.0 G/DL 08/30/2025 8:26 AM CDT [facility] PLT 349 130 - 400 x10'3/uL 08/30/2025 8:26 AM CDT [facility] 08/30/2025 6:00 AM CDT us Ab Hudson MD LABORATORY Final Result [facility] [address] [place] [address], [facility] [address] [place] [address], * (ABNORMAL) HEMOGLOBIN A1C (08/30/2025 6:00 AM CDT) HGB A1C 6.4(H) <5.7 % 08/31/2025 6:55 PM CDT [facility] Comment: ADA GUIDELINES 2010 5.7 TO 6.4% INCREASED RISK OF DIABETES > OR = 6.5% CONSISTENT WITH DIABETES ESTIMATED AVG GLUCOSE 137 mg/dL 08/31/2025 6:55 PM CDT [facility] 08/30/2025 6:00 AM CDT Ab Hudson MD LABORATORY Final Result [facility] [address] [place] [address], [place] [phone] * MG SCREENING W GILLES ZINA DIGI (10/14/2022 3:52 PM AUTOMOTIVE REFINISH TECHNICIAN) Anatomical Region Laterality Modality Breast Bilateral Computed Tomogra phy, Other 10/14/2022 4:16 PM AUTOMOTIVE REFINISH TECHNICIAN Narrative 10/14/2022 4:24 PM AUTOMOTIVE REFINISH TECHNICIAN IMAGING STUDIES: Bilateral screening mammograms with computer-aided detection with 2-D and 3-D imaging. Tomosynthesis. DATE: 10/14/2022 3:29 PM HISTORY: Encounter for screening mammogram for malignant neoplasm of breast . COMPARISON: 09/21/2019. 09/24/2021 TISSUE TYPE: There are scattered areas of fibroglandular density. FINDINGS: 1. Mild scattered fibroglandular tissue pattern is present. Benign calcifications. Stable benign nodule within the inferior and lateral right retroareolar region. 2. No malignant microcalfcifications, new dominant masses, or architectural distortion. 3. No skin thickening or nipple retraction. Axillary regions are within normal limits. IMPRESSION: 1. No mammographic evidence of malignancy. 2. Assessment: ACR BI-RADS 2 - BENIGN FINDING(S) 3 .Routine Screening Bilateral MQSA BI-RADS Categories: Category 0 - needs additional imaging evaluation. Category 1 - negative. Category 2 - benign findings. Category 3 - probably benign findings, but short interval follow-up is recommended. Category 4 - suspicious abnormality and biopsy should be considered though the lesion may well be benign. Category 5 - highly suggestive of malignancy and appropriate action should be taken. Category 6 - known biopsy-proven malignancy A) A negative report should not delay a biopsy if a dominant or clinically suspicious mass is present. B) Adenosis and dense breasts may obscure an underlying neoplasm. C) Study interpreted with computer aided detection. Ordered By: ABRAM MOHAN Interpreted By: Poppy Sanchez, 10/14/2022 4:16 PM Abram Mohan MD MAMMO Final Result from Last 3 Months or Most Recently Relevant to Health Maintenance Insurance Care Teams Software Tester Relationship Specialty Start Date End Date Abram Mohan MD [address] [place] [address] [phone] PCP - General FAMILY PRACTICE 03/05/18 Barry Triplett MD [address] [place] [id number] [place] Chief Payroll Clerk CARDIOVASCULAR DISEASE 03/05/18
--- OUTSIDE RECORDS SUMMARY | 2025-11-07 13:59 | XMS_ITS | Encounter Summary ---
Author Organization [facility] [place] [address] Care Team Providers Care Clerical Manager Name Role Phone Bridgette Rodriguez MD Primary Care Provider Uziel Cerna MD, Barry Unavailable [phone] Encounter Details Date Type Department Care Team (Latest Contact Info) Description 09/15/2018 Abstract [facility] , Naya Fraser MD Social History Tobacco Use Types Packs/Day Years Used Date Smoking Tobacco: Never Smokeless Tobacco: Never Comments Unknown Sex and Gender Information Value Date Recorded Sex Assigned at Not on file Legal Sex Female 10:29 PM CDT Gender Identity Female 01/28/2022 9:06 AM CDT Sexual Orientation Not on file documented as of this encounter Plan of Treatment Upcoming Encounters Date Type Department Care Team (Late st Contact Info) Description 04/27/2026 11:00 AM CDT Office Visit [facility] [place] [id number] Calvin Thompson, [place] [address] [address] documented as of this encounter Visit Diagnoses Not on filedocumented in this encounter Additional Health Concerns Infection Onset Date Last Indicated Resolved Time COVID-19 Rule Out 01/14/2022 01/14/2022 01/14/2022 4:55 PM 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
--- OUTSIDE RECORDS SUMMARY | 2025-11-07 13:59 | XMS_ITS | Clinical Summary ---
Author Organization [facility] Address [address] [place] [address] Care Team Providers Care Compliance Nurse Name Role Phone Bridgette Rodriguez MD Primary Care Provider [phone] Source Comments [facility],non-owned Affiliates and Associated Physician Practices is amultiple site organization consisting of ambulatory clinics and hospital sitesin [place], [place], [place] and [place]. This disclosure is being madepursuant to the Care Everywhere program and may not contain all information available regarding this patient. Last updated 18.[facility] Allergies Active Allergy Reactions Criticality Noted Date Comments Atorvastatin Myalgias Medium 04/19/2016 Bee Venom Anaphylaxis High 01/10/2016 Latex Other Low 12/06/2013 Skin irritation., Skin irritation. Metoprolol Other 12/17/2022 Medications * Be aware that medications may not be up to date on this document. Alwaysverify current medications with the patient. lisinopril (PRINIVIL; ZESTRIL) 10 MG tabletIndications: Malignant neoplasm of thyroid gland (HCC),Type 2 diabetes mellitus without complication, without long-term current use of insulin (HCC),Postoperativ e hypothyroidism Take 10 mg by mouth once daily 0 06/08/20 18 Active Multiple Vitamin (MULTI VITAMIN PO)Indications:Mal ignant neoplasm of thyroid gland (HCC),Type 2 diabetes mellitus without complication, without long-term current use of insulin (HCC),Postoperativ e hypothyroidism Take 1 capsule by mouth once daily Active venlafaxine XR 24hr (EFFEXOR XR) 75 MG capsuleIndications :Malignant neoplasm of thyroid gland (HCC),Type 2 diabetes mellitus without complication, without long-term current use of insulin (HCC),Postoperativ e hypothyroidism Take 75 mg by mouth once daily 3 07/21/20 18 Active Nutritional Supplements (JUICE PLUS FIBRE PO)Indications:Mal ignant neoplasm of thyroid gland (HCC),Type 2 diabetes mellitus without complication, without long-term current use of insulin (HCC),Postoperativ e hypothyroidism Take by mouth once daily Active montelukast (SINGULAIR) 10 MG tablet Take 10 mg by mouth every evening 1 07/28/20 19 Active Cholecalciferol (VITAMIN D-3) 1000 units Take 1 capsule by mouth once daily Active EPINEPHrine (EPIPEN) 0.3 MG/0.3ML auto-injector pen INJECT 0.3 MILLILITER (0.3 MG) BY INTRAMUSCULAR ROUTE ONCE 08/04/20 20 Active rosuvastatin (Crestor) 20 MG tablet TAKE 1 TABLET BY MOUTH NIGHTLY AT BEDTIME 05/23/20 25 Active omeprazole (PriLOSEC) 20 MG capsule 1 CAPSULE 1/2 TO 1 HOUR BEFORE MORNING MEAL ORALLY ONCE A DAY; Duration: 90 Active metFORMIN ER 24hr (Glucophage XR) 500 MG tabletIndications: Type 2 Diabetes Mellitus Take 1 (one) tablet by mouth 2 times daily after meals Reasons: Type 2 Diabetes 180 tablet 3 06/14/20 25 Active Synthroid 112 MCG tabletIndications: Malignant neoplasm of thyroid gland (HCC),Thyroid cancer (HCC),Postoperativ e hypothyroidism Take 1 (one) tablet by mouth daily before breakfast EXCEPT FRIDAY TWO PILLS 105 tablet 3 06/14/20 25 026 Active Active Problems Problem Noted Date Diagnosed Date Adorno's neuroma of right foot 06/14/2025 Allergic rhinitis 02/09/2024 Menopausal and female climacteric states 023 Mixed hyperlipidemia 12/17/2022 NSVT (nonsustained ventricular tachycardia) 07/13 Dyslipidemia 08/06/2019 HTN (hypertension) 08/06/2019 Muscle strain of right upper back 07/17/2018 Overview (07/27/2018): Last Assessment & Plan: TTP over right thoracic paraspinal region. Located near the insertions of the rhomboid and trapezius muscles. Suspicious for muscle strength. Will send to physical therapy for this. Polyarthralgia 07/16/2018 Overview (01/25/2019): Overview: VERY MILDLY ELEVATED ESR 34. X-ray (07/19/2018): Right hand: 3 mm bony ossicle at the ulnar styloid; left hand: 2 mm bony ossicle at the ulnar styloid; right knee: Mild patellofemoral OA, minimal medial and lateral compartment OA; left knee: Minimal patellofemoral and medial/lateral compartment OA; SI joints: Negative; Initial serologies: ESR 36. Otherwise negative serologies. Positive KENYA 1:80 homogeneous, positive PS PT on Avise US (07/27/2018): 1) Mild effusions and power Doppler on examination which will have to be correlated clinically. 2) Symptoms greatest in the long view of the wrist and radial/scaphoid joint with a grade 1 effusion and grade 1 power Doppler 3) Grade 1 effusion in the volar 2nd PIP joint 4) Likely ganglion cyst on radial wrist 5) Mild synovial thickening is seen in the wrist and 4th MCP joint. 6) An enlarged median nerve is identified. History of mildly elevated sed rate 34, as well as 3rd and 5th DIP joint pains. Occasional swelling in her 3rd DIP when she has a flare-up. Denies any pain or stiffness in the joints of the MCP and PIP joints in the hands. Mild upper back pain, which has recently worsened with her exercising. Denies any morning stiffness. Occasional canker sores, but denies other symptoms for connective tissue disease. Denies family history for autoimmune diseases. No obvious synovitis on exam. Heberden's nodes noted in 3rd DIP. TTP over 3rd and 5th DIP joints. Symptoms are more suspicious for osteoarthritis at this time. No obvious evidence for inflammatory arthritis, although cannot rule this out given recent elevated sed rate. Inflammatory spondyloarthropathy is certainly possible given DIP involvement. For this reason, will perform appropriate serologies, radiographs, as well as right hand ultrasound, including the DIP joints to further evaluate. Follow-up 2 weeks. Sooner if needed. Seen with Dr. Kay. Last Assessment & Plan: Initial serologies: ESR 36. Otherwise negative serologies. Positive KENYA 1:80 homogeneous, positive PS PT on Avise US (07/27/2018): Mild synovial thickening. Initial hx: History of mildly elevated sed rate 34, as well as 3rd and 5th DIP joint pains. Occasional swelling in her 3rd DIP when she has a flare-up. Denies any pain or stiffness in the joints of the MCP and PIP joints in the hands. Mild upper back pain, which has recently worsened with her exercising. Denies any morning stiffness. Occasional canker sores, but denies other symptoms for connective tissue disease. Denies family history for autoimmune diseases. Patient notes that she continues to have very mild pain over 3rd and 5th DIP joints in her right hand. Otherwise denies any pain or stiffness in the other joints, including the MCP and PIP joints of the hands. Denies much pain or stiffness in the knees today. Notes that her back pain has resolved, which she attributed to increased stress as she was concerned prior to last visit for possible rheumatoid arthritis. No obvious synovitis on exam. Heberden's node present in 3rd DIP joint. TTP over 3rd and 5th DIP joints right hand. No obvious evidence of inflammatory arthritis at this time based on symptoms and ultrasound findings. Most likely osteoarthritis of the cause. Patient notes that the pain in the DIP joints is mild. Patient given samples of Pennsaid to be applied to the affected joints of the 2 times daily p.r.n.. Discussed potential side effects of the medication. Seen with Dr. Kay. Patient may follow up as needed or if any new symptoms arise. Overview: VERY MILDLY ELEVATED ESR 34. X-ray (07/19/2018): Right hand: 3 mm bony ossicle at the ulnar styloid; left hand: 2 mm bony ossicle at the ulnar styloid; right knee: Mild patellofemoral OA, minimal medial and lateral compartment OA; left knee: Minimal patellofemoral and medial/lateral compartment OA; SI joints: Negative; Initial serologies: ESR 36. Otherwise negative serologies. Avise not in yet. Last Assessment & Plan: History of mildly elevated sed rate 34, as well as 3rd and 5th DIP joint pains. Occasional swelling in her 3rd DIP when she has a flare-up. Denies any pain or stiffness in the joints of the MCP and PIP joints in the hands. Mild upper back pain, which has recently worsened with her exercising. Denies any morning stiffness. Occasional canker sores, but denies other symptoms for connective tissue disease. Denies family history for autoimmune diseases. No obvious synovitis on exam. Heberden's nodes noted in 3rd DIP. TTP over 3rd and 5th DIP joints. Symptoms are more suspicious for osteoarthritis at this time. No obvious evidence for inflammatory arthritis, although cannot rule this out given recent elevated sed rate. Inflammatory spondyloarthropathy is certainly possible given DIP involvement. For this reason, will perform appropriate serologies, radiographs, as well as right hand ultrasound, including the DIP joints to further evaluate. Follow-up 2 weeks. Sooner if needed. Seen with Dr. Kay. 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 Gastroesophageal reflux disease without esophagi tis 10/14/2017 Overview (06/13/2020): Patient has had symptoms of reflux for the past several weeks for which will start her on proton pump inhibitor Malignant neoplasm of thyroid gland 08/07/2016 Overview (07/27/2018): Overview: Papillary Ca thyroid BRAF positive Multicentric Less than 1 cm Off L-T4 for two Weeks prior to radioactive iodine treatment 78.5 m Ci po I-131 given on 06/10/2013 Surgery 04/20/2013 Number [id number] Left thyroid lobectomy Follicular nodule with hurthle cell change Follicular variant papillary thyroid carcinoma Tumor size 0.7 x 0.6 x 0.6 cm Margin positive along the posterior aspect Partially encapsulated PT1, pNx, pMx [facility] genetic analysis NRAS not detected BRAF codon 600 mutation detected KRAS mutation not detected Right thyroid lobectomy 05/19/2013 ? 0.5 mm tumor Papillary carcinoma, follicular variant Margins negative for tumor PT1, Nx, Mx Papillary Ca thyroid BRAF positive Multicentric Less than 1 cm Off L-T4 for two Weeks prior to radioactive iodine treatment 78.5 m Ci po I-131 given on 06/10/2013 Surgery 04/20/2013 Number [id number] Left thyroid lobectomy Follicular nodule with hurthle cell change Follicular variant papillary thyroid carcinoma Tumor size 0.7 x 0.6 x 0.6 cm Margin positive along the posterior aspect Partially encapsulated PT1, pNx, pMx ARUP genetic analysis NRAS not detected BRAF codon 600 mutation detected KRAS mutation not detected Right thyroid lobectomy 05/19/2013 ? 0.5 mm tumor Papillary carcinoma, follicular variant Margins negative for tumor PT1, Nx, Mx Type 2 diabetes mellitus without complication Overview (08/10/2025): IMO 08/10/2025 Hypothyroidism 08/24/2015 Essential hypertension, benign 09/17/2013 Pure hypercholesterolemia 09/17/2013 Thyroid cancer Diabetes mellitus Encounters Date Type Department Care Team Description 09/02/2025 Orders Only [facility] - Endocrinology [address], [place] [address] Darnell Hills MD Type 2 diabetes mellitus without complication, without long-term current use of insulin (HCC) from Last 3 Months Immunizations Immunization Administration Dates Next Due Taketake primary monoval ent 12+ yr 0.3mL Purple cap 02/03/2021,01/14/2021 FLU VACCINE QUAD IIV4 SPLIT 0.25 ML IM 08/05/2019 FLU VACCINE TRI IIV3 SPLIT P F IM (FLUVIRIN) 07/30/2017,09/25/2015 HEP A VACCINE, ADULT 11/26/2002,03/16/2002 HEP B VACCINE, ADULT 3 DOSE 11/10/2003,0 11/26/2002,04/19/2002,2001 INFLUENZA VACCINE 07/11/2018 INFLUENZA VACCINE, CELL CULT URE, QUADR. (FLUCELVAX QUADRIVALENT; 6MO+) (CCIIV4) 08/03/2019 INFLUENZA VACCINE, QUADR. (F LUZONE; FLULAVAL; FLUARIX; AFLURIA QUADRIVALENT; 6MO+), 0.5 ML (IIV4) 07/19/2020,07/24/2018,07/31/2017,2015 PNEUMOCOCCAL PPSV23 12/25/2017 TDAP (7yrs+) 05/10/2012 Td (Adult), 2 Lf Tetanus Tox oid, Adsorbed, Pf 03/16/2002 Family History Medical History Relation Name Comments Hypertension Brother 1 Elevated Lipids Brother 2 Heart Disease Brother 3 None Known Daughter Status: Alive Diabetes Father Elevated Lipids Father Heart Disease Father Hypertension Father Cancer Maternal Grandfather bladder Elevated Lipids Mother Thyroid Disease Mother hypothyroidi sm Cancer Paternal Aunt colon None Known Son Status: Alive Asthma Neg Hx COPD - Chronic Obstructive Pulmonary Disease Neg Hx CVA Neg Hx Kidney Disease Neg Hx Relation Name Status Comments Brother 1 Brother 2 Brother 3 Daughter Father Maternal Grandfather Mother Paternal Aunt Son Social History Tobacco Use Types Packs/Day Years Used Date Smoking Tobacco: Never Smokeless Tobacco: Never Tobacco Cessation:Counseling Given: Not Answered Alcohol Use Standard Drinks/Week Comments No 0 (1 standard drink = 0.6 oz pur e alcohol) PHQ-2 Answer Date Recorded Patient Health Questionnaire-2 Score 0 06/14/2025 Comments No Sex and Gender Information Value Date Recorded Sex Assigned at Not on file Legal Sex Female 5:20 PM UPPER MARKER Gender Identity Not on file Sexual Orientation Not on file Last Filed Vital Signs Vital Sign Reading Time Taken Comments Blood Pressure 131/78 06/14/2025 9:02 AM CDT Pulse 63 06/14/2025 9:02 AM CDT Temperature 37 C (98.6 F) 06/17/2023 8:01 AM CDT Respiratory Rate 18 06/17/2023 8:01 AM CDT Oxygen Saturation 97% 06/14/2025 9:02 AM CDT Inhaled Oxygen Concentration - - Weight 93.4 kg (206 lb) 06/14/2025 9:02 AM CDT Height 172.7 cm (5' 8) 06/14/2025 9:02 AM CDT Body Mass Index 31.32 06/14/2025 9:02 AM CDT Plan of Treatment Upcoming Encounters Date Type Department Care Team (Late st Contact Info) Description 06/13/2026 9:00 AM CDT Office Visit [facility] - Endocrinology [address] [place] [address], [place] [address] Darnell Hills MD [address] [place] [address] [place] [address] Health Maintenance Due Date Last Done Comments COLOGUARD (AGES 45-75) - COLON CA SCREENING 1963 COLON MONITORING 1963 COLONOSCOPY - COLON CA SCREENING 1963 CT COLONOGRAPHY - COLON CA SCREENING 1963 Colorectal Cancer Screening 1963 FIT - COLON CA SCREENING 1963 FLEX SIG - COLON CA SCREENING 1963 HIV SCREENING 1978 HEPATITIS C SCREENING 07/04/1981 DIABETES-SERUM CREATININE 1981 PAP SMEAR 1984 Respiratory Syncytial Virus (RSV) Vaccine Pt: or over 60 yrs (1 - Risk 50-74 years 1-dose series) 2013 ZOSTER VACCINE (1 of 2) 2013 DIABETES RETINOPATHY SCREENING 02/09/2018 PNEUMOCOCCAL VACCINE 50+ (2 of 2 - PCV) 12/25/2018 12/25/2017 DIABETES-FOOT EXAM WITH MONOFILAMENT 06/13/2021 06/13/2020, 07/27/2018, 07/27/2018 DTAP/TDAP/TD VACCINES (2 - Td or Tdap) 05/10/2022 05/10/2012, 03/16/2002 MAMMOGRAM 10/14/2024 10/14/2022, 1203/2022, 08/13/2013, Additional history exists COVID-19 VACCINE ( season) 2025 08/08/2024, 11/15/2023, 08/22/2022, Additional history exists INFLUENZA VACCINE (#1) 2025 , 08/24/2023, 08/22/2022, Additional history exists DIABETES-HGB A1C 12/03/2025 06/02/2025, 05/2025, 06/05/2024, Additional history exists DIABETES - URINE PROTEIN SCREENING 06/02/2026 06/02/2025, 12/08/2023 HEPATITIS B VACCINE Completed 11/10/2003, 11/26/2002, 04/19/2002, Additional history exists DEPRESSION SCREENING Completed 06/14/2025, 06/17/20 23 HIB VACCINE Aged Out No longer eligi ble based on patient's age to complete this topic HPV VACCINE Aged Out No longer eligi ble based on patient's age to complete this topic MENINGOCOCCAL (Group B) VACCINE SHARED DECISION-MAKING Aged Out No longer eligible based on patient's age to complete this topic MENINGOCOCCAL GROUPS A/C/Y/W VACCINE Aged Out No longer eligible based on patient's age to complete this topic Procedures Procedure Name Priority Date/Time Associated Diagnosis Comments MICROALB/CREAT RATIO URINE RANDOM PANEL 06/02/2025 8:33 AM CDT HEMOGLOBIN A1C 06/02/2025 8:33 AM CDT from Last 3 Months or Most Recently Relevant to Health Maintenance Results * MICROALB/CREAT RATIO URINE RANDOM PANEL (06/02/2025 8:33 AM CDT) Creatinine Urine 97 20 - 275 mg/dL [facility] Microalbumin Urine 0.3 mg/dL [facility] Comment: Reference Range Not established Microalbumin/Creat inine Ratio 3 <30 mg/g creat [facility] Comment: The ADA defines abnormalities in albumin excretion as follows: Albuminuria Category Result (mg/g creatinine) Normal to Mildly increased <30 Moderately increased 30-299 Severely increased > OR = 300 The ADA recommends that at least two of three specimens collected within a 3-6 month period be abnormal before considering a patient to be within a diagnostic category. Test Performed at: [facility] [id number] [place] [address] PIEDAD SPENCE MD 06/02/2025 8:33 AM CDT 06/02/2025 8:34 AM CDT Darnell Hills MD LAB - URINE CHEMISTRY ORDER HU Final Result [facility] [address] [place] [address] * (ABNORMAL) HEMOGLOBIN A1C (06/02/2025 8:33 AM CDT) Hemoglobin A1c 6.5(H) <5.7 % of total Hgb [facility] Comment: For someone without known diabetes, a hemoglobin A1c value of 6.5% or greater indicates that they may have diabetes and this should be confirmed with a follow-up test. For someone with known diabetes, a value <7% indicates that their diabetes is well controlled and a value greater than or equal to 7% indicates suboptimal control. A1c targets should be individualized based on duration of diabetes, age, comorbid conditions, and other considerations. Currently, no consensus exists regarding use of hemoglobin A1c for diagnosis of diabetes for children. Test Performed at: [facility] [address] [place] [address] PIEDAD SPENCE MD 06/02/2025 8:33 AM CDT 06/02/2025 8:34 AM CDT Darnell Hills MD LAB - CHEMISTRY ORDERABLES Final Result [facility] [address] [place] [address] from Last 3 Months or Most Recently Relevant to Health Maintenance Insurance ANTH Care Teams Compliance Nurse Relationship Specialty Start Date End Date Bridgette Rodriguez MD [address] [place] [address] PCP - General 01/29/18
--- OUTSIDE RECORDS SUMMARY | 2025-11-07 13:59 | XMS_ITS | Encounter Summary ---
Author Organization [facility] Address [facility] [place] [address] Care Team Providers Care Instructor Creeler Name Role Phone Bridgette Rodriguez MD Primary Care Provider Uziel Cerna MD, Barry Unavailable [phone] Encounter Details Date Type Department Care Team (Late Contact Info) Description 08/02/2021 Abstract [facility], [facility] [address] [place] [address] Torrey Edmondson MA Social History Tobacco Use Types Packs/Day Years Used Date Smoking Tobacco: Never Smokeless Tobacco: Never Comments Unknown Sex and Gender Information Value Date Recorded Sex Assigned at Not on file Legal Sex Female 10:29 PM CDT Gender Identity Female 01/28/2022 9:06 AM CDT Sexual Orientation Not on file COVID-19 Exposure Response Date Recorded In the last month, have you been in contact with someone who was confirmed or suspected to have Coronavirus / COVID-19? Unable to assess 07/10/2021 9:11 AM CDT documented as of this encounter Plan of Treatment Upcoming Encounters Date Type Department Care Team (Late st Contact Info) Description 04/27/2026 11:00 AM CDT Office Visit [facility] [place] [id number] Calvin Thompson NP [facility] [address] [place] [address] documented as of this encounter Procedures Procedure Name Priority Date/Time Associated Diagnosis Comments CBC (OUTSIDE LAB) Routine 12/19/2022 COMPREHENSIVE METABOLIC PANEL Routine 12/19/2022 LIPID PANEL Routine 12/19/2022 HEMOGLOBIN GLYCOSYLATED A1C Routine 12/19/2022 THYROID STIM HORMONE TSH Routine 12/19/2022 VITAMIN D, 25 OH Routine 12/19/2022 URIC ACID BLOOD Routine 12/19/2022 BASIC METABOLIC PANEL Routine 08/01/2021 MAGNESIUM Routine 08/01/2021 CBC (OUTSIDE LAB) Routine 02/28/2021 COMPREHENSIVE METABOLIC PANEL Routine 02/28/2021 LIPID PANEL Routine 02/28/2021 documented in this encounter Results * LIPID PANEL (12/19/2022) CHOLESTEROL 149 HDL 50 TRIGLYCERIDES 135 LDL (CALCULATED) 75 12/19/2022 us Default History Genericprovider LABORATORY Final Result * THYROID STIM HORMONE, TSH (12/19/2022) TSH 1.700 12/19/2022 us Default History Genericprovider LABORATORY Final Result * URIC ACID BLOOD (12/19/2022) URIC ACID 5.8 12/19/2022 us Default History Genericprovider LABORATORY Final Result * CBC (OUTSIDE LAB) (12/19/2022) Pathologist [facility] WBC 6.9 HGB 13.4 HCT 37.4 PLT 350 12/19/2022 [facility] History Genericprovider LAB-OUTSIDE/ABST RACTED Final Result * (ABNORMAL) COMPREHENSIVE METABOLIC PANEL (12/19/2022) Pathologist [facility] SODIUM S/P/B 141 POTASSIUM S/P/B 4.4 CO2 25 CHLORIDE S/P/B 101 GLUCOSE 106 mg/dL CALCIUM S/P/B 9.8 BUN 12 CREATININE S/P/B 0.60 0.5 - 1.0 EGFR NON-AFR. AMER. 103(A) <=90 ALKALINE PHOSPHATASE S/P/B 91 ALT 18 AST 20 BILIRUBIN TOTAL S/P/B 0.7 ALBUMIN S/P/B 4.4 3.5 - 5.0 TOTAL PROTEIN S/P/B 7.1 GLOBULIN 2.7 12/19/2022 Default History Genericprovider LABORATORY Final Result * HEMOGLOBIN, GLYCOSYLATED (12/19/2022) Pathologist [facility] HGB A1C 6.4 % 12/19/2022 Default History Genericprovider LABORATORY Final Result * VITAMIN D, 25 OH (12/19/2022) Pathologist [facility] VITAMIN D 25 HYDROXY S/P/B 44.4 12/19/2022 Default History Genericprovider LABORATORY Final Result * MAGNESIUM (08/01/2021) Pathologist [facility] MAGNESIUM 2.1 08/01/2021 [facility] Abstract LABORATORY Edited Resul t - Final * (ABNORMAL) BASIC METABOLIC PANEL (08/01/2021) SODIUM S/P/B 140 POTASSIUM S/P/B 4.2 CO2 27 CHLORIDE S/P/B 100 GLUCOSE 93 mg/dL CALCIUM S/P/B 9.7 BUN 15 CREATININE S/P/B 0.65 0.5 - 1.0 EGFR AFR. AMER. 113(A) <=90 EGFR NON-AFR. AMER. 98(A) <=90 08/01/2021 us Doc [facility] Abstract LABORATORY Final Result * LIPID PANEL (02/28/2021) Pathologist [facility] CHOLESTEROL 168 HDL 50 TRIGLYCERIDES 144 NON HDL CHOLESTEROL 118 LDL (CALCULATED) 94 02/28/2021 us Doc [facility] Abstract LABORATORY Final Result * (ABNORMAL) COMPREHENSIVE METABOLIC PANEL (02/28/2021) Pathologist [facility] SODIUM S/P/B 135 POTASSIUM S/P/B 4.1 CO2 28 CHLORIDE S/P/B 95 GLUCOSE 90 mg/dL CALCIUM S/P/B 9.8 BUN 15 CREATININE S/P/B 0.65 0.5 - 1.0 EGFR AFR. AMER. 114(A) <=90 EGFR NON-AFR. AMER. 99(A) <=90 ALKALINE PHOSPHATASE S/P/B 85 ALT 21 AST 23 BILIRUBIN TOTAL S/P/B 0.9 ALBUMIN S/P/B 4.6 3.5 - 5.0 TOTAL PROTEIN S/P/B 7.3 GLOBULIN 2.7 02/28/2021 us Doc [facility] Abstract LABORATORY Final Result * CBC (OUTSIDE LAB) (02/28/2021) Pathologist [facility] WBC 8.4 HGB 12.9 HCT 37.9 PLT 391 02/28/2021 us Doc [facility] Abstract LAB-OUTSIDE/ABSTRACTED Final Result documented in this encounter Visit Diagnoses Not on filedocumented in this encounter Additional Health Concerns Infection Onset Date Last Indicated Resolved Time COVID-19 Rule Out 01/14/2022 01/14/2022 01/14/2022 4:55 PM 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
--- OUTSIDE RECORDS SUMMARY | 2025-11-07 13:59 | XMS_ITS | Patient Health Record ---
Author Organization [facility] Address [address] [place] [address] Care Team Providers Care Seed Corn Manager Production Name Role Phone Dr. Bridgette Rodriguez Primary Care Provider [phone] Bridgette Zavala Unavailable [phone] Allergies Allergen (clinical drug ingredient) Drug/Non Drug Allergy documented on EMR Reaction Allergy Type Onset Date Status Latex Latex (uncoded) Unknown Allergy 04/18/2022 Act mike Honey Bee Venom swelling Drug Allergy 04/19/2021 Active metoprolol Metoprolol hair loss Drug Allergy 12/17/2022 Acti ve Results Component Value Reference Range Notes Covid Rapid Antigen BD Verit or Reviewed date:01/19/2025 09:12:08 AM Interpretation:Negative Performing Lab: Notes/Report: Negative influenza A & B card Reviewed date:01/19/2025 09:11:53 AM Interpretation:Negative Performing Lab: Notes/Report: Negative Mammogram Reviewed date:11/17/2024 04:19:17 PM Interpretation:Normal Performing Lab: Notes/Report: Normal Reason For Referral No Information Medications Medication SIG (Take, Route, Frequency, Duration) Notes Start Date End Date Status Venlafaxine HCl ER 75 MG Capsule Extended Release 24 Hour 1 capsule with food Orally Once a day; Duration: 90 days Active metFORMIN HCl ER 500 MG Tablet Extended Release 24 Hour 1 tablet Orally twice a day; Duration: 90 days Active Rosuvastatin Calcium 20 MG Tablet 1 Oral every night at bedtime; Duration: 0 10/22/2021 Active Vitamin D3 50 MCG (1999) Tablet 1 tablet Oral Once a day; Duration: 0 days 04/19/2021 Active Juice Plus Fibre - Liquid as directed Orally Active Lisinopril 10 MG Tablet 1 tablet Orally Once a day; Duration: 90 days Active Omeprazole 20 MG Capsule Delayed Release TAKE 1 CAPSULE BY MOUTH 1/2-1 HOUR BEFORE MORNING MEAL DAILY; Duration: 90 Active Multi Vitamin oral; Duration: 0 *Pick strength-form from [employer] for eRX* 04/18/2022 Active Synthroid 137 MCG Tablet 1 tablet in the morning on an empty stomach Oral Once a day; Duration: 0 days 04/19/2021 Active Montelukast Sodium 10 MG Tablet 1 tablet Orally Once a day; Duration: 90 days Active Immunizations Vaccine Route Administration Date Status Comme nts Influenza virus vaccine, quadrivalent (IIV4), split virus, 0.25 mL dosage Unknown 08/24/2023 Administered ,sourcename : Historical information -source unspecified Source VFC Code: : Influenza, injectable, MDCK, preservative free Unknown 08/05/2019 Administered ,sourcename : Historical information -source unspecified Source VFC Code: : Influenza, injectable, MDCK, preservative free Unknown 09/14/2025 Administered Influenza, quadrivalent (IIV4), split virus, 6-35 months dosage IM Intramuscular 08/18/2021 Administered Source VFC Code: : Influenza, seasonal, injectable, preservative free, 3 yrs and above Unknown 08/22/2022 Administered ,sourcename : Pharmacy Source VFC Code: : Influenza, seasonal, injectable, preservative free, 3 yrs and above Unknown 08/08/2024 Administered [facility]sourcename : Pharmacy Source VFC Code: : Hep B, adult (2 dose schedule) Unknown 11/10/2003 Administered ,sourcename : Historical information -source unspecified Source VFC Code: : Moderna Covid-19 Vaccine 1st dose Unknown 02/12/2021 Administered ,sourcename : Historical information -source unspecified Source VFC Code: : Pfizer-Biontech Covid-19 Vaccine 1st dose IM Intramuscular 01/14/2021 Administered Source VFC Code: : Pfizer-Biontech Covid-19 Vaccine 1st dose IM Intramuscular 02/03/2021 Administered Source VFC Code: : Pfizer-Biontech Covid-19 Vaccine 1st dose Unknown 08/22/2022 Administered ,sourcename : Pharmacy Source VFC Code: : Pfizer-Biontech Covid-19 Vaccine 1st dose Unknown 11/15/2023 Administered [facility] ,sourcename : New immunization record Source VFC Code: : Pfizer-Biontech Covid-19 Vaccine 1st dose Unknown 08/08/2024 Administered [facility]sourcename : Pharmacy Source VFC Code: : Pneumococcal polysaccharide PPV23 Unknown 12/25/2017 Administered ,sourcename : Historical information -source unspecified Source VFC Code: : Tdap Unknown 11/13/2020 Administered ,sourcename : Historical information -source unspecified Source VFC Code: : Tdap Unknown 12/26/2024 Administered Zoster Unknown 03/10/2022 Administered ,sourcename : Historical information -source unspecified Source VFC Code: : Zoster Unknown 10/05/2022 Administered ,sourcename : Pharmacy Source VFC Code: : Social History Tobacco Use: Social History Observation Description Date Details (start date - stop date) Never Smoker NA - NA Social History Household: Social Info Question Answer Notes Household Marital status: Drug/Alcohol: Social Info Question Answer Notes AUDIT-C (Standard) Did you have a drink containing alcohol in the past year? Yes How often did you have a drink containing alcohol in the past year? Monthly or less (1 point) How many drinks did you have on a typical day when you were drinking in the past year? 1 or 2 drinks (0 point) How often did you have six or more drinks on one occasion in the past year? 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 Problems Problem Type SNOMED Code ICD Code Onset Dates Problem Status W/U Status Risk Notes Problem Gastro-esophageal reflux disease without esophagitis (608215159) Gastro-esophageal reflux disease without esophagitis (K21.9) 09/28/20 24 Active confirmed Problem Body mass index 30+ - obesity (750522380) Body mass index (BMI) 30.0-30.9, adult (Z68.30) 06/26/20 22 Active confirmed Problem Mononeuropathy of lower limb (412490885) Unspecified mononeuropathy of bilateral lower limbs (G57.93) 09/28/20 24 Active confirmed Problem History of malignant neoplasm of thyroid (185077222) Personal history of malignant neoplasm of thyroid (Z85.850) 03/22/20 23 Active confirmed Problem Nutritional status: food and fluid intake (001525705) Other symptoms and signs concerning food and fluid intake (R63.8) 04/19/20 21 Active confirmed Problem Palpitations (19067053) Palpitations (R00.2) 10/22/20 21 Active confirmed Problem Urinary tract infectious disease (disorder) (15865609) Urinary tract infection, site not specified (N39.0) 03/22/20 23 Active confirmed Problem Contact dermatitis (11168879) Unspecified contact dermatitis, unspecified cause (L25.9) 04/01/20 23 Active confirmed Problem Allergic rhinitis (50488224) Allergic rhinitis, unspecified (J30.9) 02/09/20 24 Active confirmed Problem Essential hypertension (73660354) Essential (primary) hypertension (I10) 08/13/20 23 Active confirmed Problem Anxiety disorder (702233936) Anxiety disorder, unspecified (F41.9) 10/22/20 21 Active confirmed Problem Generalized anxiety disorder (13122266) Generalized anxiety disorder (F41.1) 04/19/20 21 Active confirmed Problem Mixed hyperlipidemia (530111105) Mixed hyperlipidemia (E78.2) 12/17/19 23 Active confirmed Problem Obesity due to excess calories (436658068) Other obesity due to excess calories (E66.09) 06/26/20 22 Active confirmed Problem Hypothyroidism (36772806) Hypothyroidism, unspecified (E03.9) 03/05/20 22 Active confirmed Problem Neuropathic pain , leg, bilateral (G57.93) Active confirmed Problem Hypothyroidism (51088983) Hypothyroidism (acquired) (E03.9) Active confirmed Problem Adorno's neuroma of right foot (178641590863886) 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) Active confirmed Problem Screening for malignant neoplasm of colon (017235836) Encounter for screening for malignant neoplasm of colon (Z12.11) 03/01/20 24 Active confirmed Problem Fatigue (45680352) Other fatigue (R53.83) 04/19/20 21 Active confirmed Problem Type II diabetes mellitus without complication (329321388) Type 2 diabetes mellitus without complications (E11.9) 12/17/19 23 Active confirmed Problem Menopause (444851972) Menopausal and female climacteric states (N95.1) 03/22/20 23 Active confirmed Problem Pain of right shoulder region (finding) (2582344108) Pain in right shoulder (M25.511) 12/20/19 22 Active confirmed Vital Signs Heart Rate 65 /min 04/06/2025 Temperature 97 degrees Fahrenheit 04/06/2025 Respiratory Rate 18 /min 04/06/2025 Height-cm 172.72 cm 04/06/2025 Oximetry 97 % 04/06/2025 Blood pressure diastolic 86 mm Hg 04/06/2025 Weight-kg 91.08 kg 04/06/2025 Height 68.00 in 04/06/2025 Blood pressure systolic 120 mm Hg 04/06/2025 Weight 200.8 lbs 04/06/2025 BMI 30.53 kg/m2 04/06/2025 Encounters Encounter [place] [address] 11/22/2024 Dr. Bridgette Rodriguez Trigeminal herpes zoster B02.22 and Type 2 diabetes mellitus without complications E11.9 [place] [address] 01/19/2025 Bridgette Zavala Acute sore throat J02.9 ; Bronchitis J40 and Chest tightness R07.89 [place] [address] 01/26/2025 Bridgette Zavala Acute sinusitis, recurrence not specified, unspecified location J01.90 [place] [address] 04/06/2025 Dr. Bridgette Rodriguez Gastro-esophageal reflux disease without esophagitis K21.9 ; Type 2 diabetes mellitus without complications E11.9 ; Hypothyroidism, unspecified E03.9 ; Anxiety disorder, unspecified F41.9 ; Essential (primary) hypertension I10 ; Paresthesia R20.2 and Adorno's neuroma of right foot G57.61 [place] [address] 11/12/2024 Dr. Bridgette Rodriguez Mixed hyperlipidemia E78.2 ; Essential (primary) hypertension I10 ; Hypothyroidism (acquired) E03.9 ; Type 2 diabetes mellitus with hyperglycemia, without long-term current use of insulin E11.65 and Neuropathic pain, leg, bilateral G57.93 [place] [id number] 12/29/2024 Dr. Bridgette Rodriguez [address] [address] 01/24/2025 Bridgette Zavala [address] [address] 02/04/2025 Dr. Bridgette Rodriguez Assessments Encounter Date Diagnosis (ICD Code) Assessment Notes Treatment Notes Treatment Clinical Notes Section Notes 11/12/2024 Mixed hyperlipidemia (ICD-10 - E78.2) 01/26/2025 Acute sinusitis, recurrence not specified, unspecified location (ICD-10 - J01.90) - Likely a secondary infection following a viral illness, possibly sinusitis. - Prescribe Augmentin 875 mg twice daily for 10 days. Prescribe prednisone 40 mg, two tablets daily for five days, to be taken with food. - Continue using Mucinex (expectorant) and Rubina D for a few more days, then switch to regular Rubina daily continue Flonase spray. - Increase water intake, rest. - Recommend wearing masks and practicing good hygiene to prevent spreading infection. - F/U in office if symptoms persist, worsen. 04/06/2025 Type 2 diabetes mellitus without complications (ICD-10 - E11.9) 04/06/2025 Gastro-esophageal reflux disease without esophagitis (ICD-10 - K21.9) 11/12/2024 Essential (primary) hypertension (ICD-10 - I10) 11/22/2024 Trigeminal herpes zoster (ICD-10 - B02.22) her creatinine was normal in 2022. She has labs pending from last week at [facility], which we don't have. Will request and call with results to ensure renal function is OK. Discussed in detail the contagiousness of chickenpox through her shingles to anyone who is not vacciated or any mom who is - was with her daughter last weekend but discussed contagious by contact which was likely minimal or absent on her right face. call with any worsening. No pain at the curren time. Discussed calling if any eye pain or any other concerns. Otherwise, will call with lab work results when possible. Confirmed 2 shingles vaccines previously done. 01/19/2025 Acute sore throat (ICD-10 - J02.9) 01/19/2025 Bronchitis (ICD-10 - J40) - Will treat with Zpack - Patient recieved 6mg Dexamethasone inj. per request to help with tightness/inflamma tion. - Continue other supportive care measures: increase water hydration, raw honey to coat/soothe throat, daily antihistamine and Flonase nasal spray for congestion/allergi es. - F/U if symptoms persist, worsen. 01/19/2025 Chest tightness (ICD-10 - R07.89) 11/12/2024 Hypothyroidism (acquired) (ICD-10 - E03.9) 11/22/2024 Type 2 diabetes mellitus without complications (ICD-10 - E11.9) increased risk with DM for complications. No evidence of C[place] Whatley syndrome necessarily to suggest need for steroids orally but may have to consider if any worsening. 04/06/2025 Hypothyroidism, unspecified (ICD-10 - E03.9) 04/06/2025 Anxiety disorder, unspecified (ICD-10 - F41.9) 11/12/2024 Type 2 diabetes mellitus with hyperglycemia, without long-term current use of insulin (ICD-10 - E11.65) 11/12/2024 Neuropathic pain, leg, bilateral (ICD-10 - G57.93) 04/06/2025 Essential (primary) hypertension (ICD-10 - I10) 04/06/2025 Paresthesia (ICD-10 - R20.2) 04/06/2025 Adorno's neuroma of right foot (ICD-10 - G57.61) 04/06/2025 Other Sciatic Pain and Sensory Symptoms - Symptoms suggest a neural sensory issue, likely related to L4-L5 disc issue or piriformis syndrome. Adorno's neuroma identified in the right foot. - Continue physical therapy for hip and sciatic pain. Consider MRI if symptoms worsen. Wear supportive shoes to manage Adorno's neuroma. Option for custom arch supports or steroid injection if symptoms persist. - Monitor for any alarming symptoms such as loss of control over bowel or bladder functions, or numbness in the groin area, which would require immediate attention. Acid Reflux - Silent reflux suspected as the cause of wheezing. - Reduce omeprazole from 40 mg to 20 mg. Gradually attempt to discontinue if symptoms allow. - Risks and side effects: Long-term use of acid blockers can affect bones, magnesium, B12, and iron levels. - Encourage reduction of diet soda intake to help manage reflux symptoms. Diabetes Management - Well-controlled diabetes with A1c at 6.3, indicating regression to prediabetes. - Continue current management. No changes to medication. - Encourage continued exercise and healthy lifestyle choices to maintain control. Seasonal Allergies - Montelukast prescribed for allergies, possibly related to previous asthma misdiagnosis. - Attempt to discontinue montelukast and monitor for allergy symptoms. Reintroduce if necessary. Thyroid Management - Thyroid levels well-regulated with Synthroid 137 mcg. - Continue current dosage. Monitor TSH levels regularly to ensure continued regulation. Shingles - History of shingles with mild symptoms post-vaccination. - No further action required. Follow-up - Schedule a follow-up appointment in one year for a medical check. Plan Of Treatment Next Appt Details Provider Name:Dr. Bridgette chapman, 04/05/2026 11:00:00 AM, [address] [place], [address], [id number] Insurance Providers Payer Name Payer Address Payer Phone Subscriber Number Group Number Insured Name Patient Relationship to Insured Coverage Start Date Coverage End Date [employer] [address] [place] [address] [id number] Qian Adams Self - patient is the insured 2 Medications Administered Medication Instructions Date of Administration Dosage Notes dexAMETHasone 01/19/2025 6 mg Medical (General) History Medical History History ICD Code Hypothyroidism, unspecified Hypothyroidism, unspecified E03.9 Type 2 diabetes mellitus without complic ations E11.9 Other obesity due to excess calories E66 .09 Mixed hyperlipidemia E78.2 Hyperlipidemia, unspecified E78.5 Generalized anxiety disorder F41.1 Essential (primary) hypertension I10 Allergic rhinitis, unspecified J30.9 Gastro-esophageal reflux disease without esophagitis K21.9 Surgical History Surgery Date(Month/Year) section delivery _ Colonoscopy ,notes : 2013 _ Thyroidectomy ,notes : 04/2013 _ Cholecystectomy ,notes : 06/2012 _ Appendectomy ,notes : 09/2012 _
--- OUTSIDE RECORDS SUMMARY | 2025-11-07 13:59 | XMS_ITS | Clinical Summary ---
Author Organization [facility] Address [address] [place] [phone] Phone Care Team Providers Care Field Operations Farm Manager Name Role Phone Bridgette Rodriguez MD Primary Care Provider Ab Kay MD Unavailable [phone] Allergies Active Allergy Reactions Criticality Noted Date Comments Atorvastatin Muscle pain Medium 04/19/2016 Latex Other (See comments) Low 12/06/2013 Skin irritation., Skin irritation. Venom-Honey Bee Anaphylaxis High 01/10/2016 Medications SYNTHROID 137 mcg tablet Take 137 mcg by mouth daily. 4 8 Active lisinopril (PRINIVIL,ZESTR IL) 10 mg tablet Take 10 mg by mouth daily. 0 8 Active venlafaxine XR (EFFEXOR-XR) 37.5 mg 24 hr capsule Take by mouth daily. Taking one and 1 8 Active rosuvastatin (CRESTOR) 5 mg tablet Take 5 mg by mouth nightly. at bedtime. 2 8 Active aspirin 81 mg tablet Take 81 mg by mouth daily. Active multivitamin capsule Take 1 capsule by mouth daily. Active omeprazole (PriLOSEC) 40 mg capsule Take 40 mg by mouth 2 times daily as needed 9 Active montelukast (SINGULAIR) 10 mg tablet Take 10 mg by mouth nightly 9 Active metFORMIN XR (GLUCOPHAGE XR) 500 mg 24 hr tablet Take 500 mg by mouth daily 3 9 Active albuterol HFA (PROVENTIL HFA,VENTOLIN HFA,PROAIR HFA) 90 mcg/actuation inhaler Inhale 2 puffs every 6 (six) hours as needed for wheezing or shortness of breath 8.5 Inhaler 0 Active Active Problems Problem Noted Date Diagnosed Date Muscle strain of right upper back 07/17/2018 Assessment & Plan (07/17/2018 12:44 PM CDT): TTP over right thoracic paraspinal region. Located near the insertions of the rhomboid and trapezius muscles. Suspicious for muscle strength. Will send to physical therapy for this. Polyarthralgia 07/16/2018 Overview (07/28/2018): VERY MILDLY ELEVATED ESR 34. X-ray (07/19/2018): [...] Sooner if needed. Seen with Dr. Kay. Assessment & Plan (07/28/2018 11:47 AM CDT): Initial serologies: ESR 36. Otherwise negative serologies. [...] needed or if any new symptoms arise. Assessment & Plan (07/17/2018 12:43 PM CDT): History of mildly elevated sed rate 34, [...] Kay. 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 Gastroesophageal reflux disease without esophagi tis 10/14/2017 Overview (09/13/2019): Patient has had symptoms of reflux for the past several weeks for which will start her on proton pump inhibitor Immunizations Immunization Administration Dates Next Due Flucelvax Influenza Quad 08/03/2019 Hep A, Adult 11/26/2002,03/16/2002 Hep B Vaccine 11/10/2003, 3,04/19/2002,03/16 Influenza, Quadrivalent, Franchesca l Culture-based MDCK, Preservative Free, Antibiotic Free, Intramuscular 08/03/2019 Influenza, Quadrivalent, Spl it, Intramuscular 08/05/2019 Influenza, Quadrivalent, Spl it, Preservative Free, Intramuscular 07/24/2018,07/31/2017,08/20/2016 Influenza, Trivalent, Preser vative Free, Intramuscular 07/30/2017,09/25/2015 Influenza, Unspecified 07/11/2018 Pneumococcal Polysaccharide PPV23 12/25/2017 Td, adsorbed 03/16/2002 Tdap 05/10/2012 Surgical History Surgery Date Site/Laterality Comments SECTION APPENDECTOMY CHOLECYSTECTOMY THYROIDECTOMY Medical History Medical History Date Comments Diabetes mellitus Elevated cholesterol Family History Medical History Relation Name Comments Heart disease Other Relation Name Status Comments Other Social History Tobacco Use Types Packs/Day Years Used Date Smoking Tobacco: Never Smokeless Tobacco: Never Alcohol Use Standard Drinks/Week Comments Yes 0 (1 standard drink = 0.6 oz pur e alcohol) seldom Personal Safety Answer Date Recorded Getting School Help Needed Not on file 01/24 Comments Unknown Sex and Gender Information Value Date Recorded Sex Assigned at Not on file Legal Sex Female 1:54 PM CDT Gender Identity Not on file Sexual Orientation Not on file Last Filed Vital Signs Vital Sign Reading Time Taken Comments Blood Pressure 143/83 12/14/2019 3:51 PM COLLAR FUSER Pulse 79 12/14/2019 3:51 PM COLLAR FUSER Temperature 36.7 C (98 F) 12/14/2019 3:51 PM COLLAR FUSER Respiratory Rate 20 12/14/2019 3:51 PM COLLAR FUSER Oxygen Saturation 97% 12/14/2019 3:51 PM COLLAR FUSER Inhaled Oxygen Concentration - - Weight 92.1 kg (203 lb) 09/20/2019 11:17 AM COLLAR FUSER Height 171.5 cm (5' 7.5) 09/20/2019 11:17 AM CS T Body Mass Index 31.33 09/20/2019 11:17 AM COLLAR FUSER Plan of Treatment Not on file Insurance [employer] [facility] Care Teams Field Operations Farm Manager Relationship Specialty Start Date End Date Bridgette Rodriguez MD PCP - General Family Medicine 06/29/18 Ab Kay MD [address] [place] [address] Consulting Physician Rheumatology 06/29/18
--- OUTSIDE RECORDS SUMMARY | 2025-11-07 14:00 | XMS_ITS | Encounter Summary ---
Author Organization [facility] Address [address] [place] [address] Care Team Providers Care Demolition Expert Name Role Phone Bridgette Rodriguez MD Primary Care Provider [phone] Encounter Details Date Type Department Care Team (Late st Contact Info) Description 01/24/2020 Telephone [facility] Endocrinology, Diabetes and Metabolism [address] [place] [address] Darnell Hills MD [address] [place] [address] Social History Tobacco Use Types Packs/Day Years Used Date Smoking Tobacco: Never Smokeless Tobacco: Never Alcohol Use Standard Drinks/Week Comments No 0 (1 standard drink = 0.6 oz pur e alcohol) Comments No Sex and Gender Information Value Date Recorded Sex Assigned at Not on file 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 Darnell Hills Reason for call: Ms. Qian Dillon called in regarding herappt today at 3:40PM, does she need to come in or can she reschedule. She is following up on her recent blood work, last week, to make sure that her numbers are at the right levels for her meds. Or are adjustments needed. Please call her back or text her cell phone with instruction. Does she need to come in today for FU Patient Call Back number: [phone] documented in this encounter Plan of Treatment Upcoming Encounters Date Type Department Care Team (Late st Contact Info) Description 06/13/2026 9:00 AM CDT Office Visit [facility] - Endocrinology [address] [place] [address], [place] [address] Darnell Hills MD [address] [place] [address] [place] [address] documented as of this encounter Visit Diagnoses Not on filedocumented in this encounter Care Teams Demolition Expert Relationship Specialty Start Date End Date Bridgette Rodriguez MD [address] [place] [address] PCP - General 01/29/18 documented as of this encounter
--- OUTSIDE RECORDS SUMMARY | 2025-11-07 14:00 | XMS_ITS | Clinical Summary ---
Author Organization [facility] Address [address] [place] [address] Phone Care Team Providers Care Health It Specialist Name Role Phone Jocelynn Wang Primary Care Provider [phone] Allergies No known active allergies Medications SYNTHROID 125 mcg Oral tablet 08/02/2013 Act mike lisinopril (PRINIVIL) 10 mg Oral tablet 08/18/2013 Active CRESTOR 5 mg Oral tablet 08/06/2013 Active venlafaxine SR 24 hour (EFFEXOR XR) 75 mg Oral capsule 08/13/2013 Active MULTIVITAMIN ORAL Take by mouth. Active OMEGA-3 FATTY ACIDS (FISH OIL ORAL) Take by mouth. Active aspirin (ECOTRIN EC) 81 mg Oral TbEC Take 81 mg by mouth daily. Active CALCIUM CARBONATE/VITAMI N D3 (VITAMIN D-3 ORAL) Take by mouth. Active CALCIUM ORAL Take by mouth. Active Active Problems Patient Care Coordination No te Formatting of this note migh t be different from the original. Primary Care: Jocelynn Wang FNP Referring Provider: Jocelynn Wang FNP [facility] [place] [address] Other: Problem Noted Date Diagnosed Date Thyroid cancer stage unknown 08/25/2013 Diabetes mellitus HTN (hypertension) Resolved Problems Problem Noted Date Diagnosed Date Resolved Date Thyroid disease 08/25/2013 Family History Medical History Relation Name Comments Heart Disease Father Breast Cancer Other 1 mgaunt 50's Breast Cancer Other 2 mat 2nd cousin 50's, 2 cous ins Breast Cancer Other 3 mat cousin 50's-60's Cancer Other 4 mat gpa bladder 70's Cancer Paternal Aunt colon Ovarian Cancer Neg Hx Relation Name Status Comments Father Other 1 mgaunt Alive Other 2 mat 2nd cousin Other 3 mat cousin Other 4 mat gpa Paternal Aunt colon Social History Tobacco Use Types Packs/Day Years Used Date Smoking Tobacco: Never Smokeless Tobacco: Never Comments No Sex and Gender Information Value Date Recorded Sex Assigned at Not on file Legal Sex Female 1:46 PM CDT Gender Identity Not on file Sexual Orientation Not on file Occupation Industry Job Start Date Job End Date Not on file Not on file Not on file Not on file Last Filed Vital Signs Vital Sign Reading Time Taken Comments Blood Pressure 130/76 08/25/2013 11:32 AM CDT Pulse 61 08/25/2013 11:32 AM CDT Temperature - - Respiratory Rate - - Oxygen Saturation - - Inhaled Oxygen Concentration - - Weight 83 kg (183 lb) 08/25/2013 11:32 AM CDT Height 170.2 cm (5' 7) 08/25/2013 11:32 AM CDT Body Mass Index 28.66 08/25/2013 11:32 AM CDT Plan of Treatment Health Maintenance Due Date Last Done Comments DIABETES ANNUAL RETINAL EXAM 1981 DIABETES MICROALBUMIN ANNUAL SCREEN 1981 LDL CHOLESTEROL ANNUAL 1981 HPV/Cotest (21-29) 1984 CERVICAL CANCER SCREENING 1993 HPV/Cotest (30-65) 1993 PAP SMEAR 1993 COLORECTAL SCREENING 2008 Colorectal Cancer Screening 2008 FIT-DNA Q 3 years 2008 FIT/FOBT Q 1 year 2008 Flex Sig/CT Colonography Q 5 years 2008 ZOSTER VACCINE (1 of 2) 2013 BREAST CANCER SCREENING 08/13/2014 08/13/20 13, 04/02/2013, 03/30/2013, Additional history exists DIABETES ANNUAL FOOT EXAM 06/13/2021 06/13/2020 DTAP/TDAP/TD VACCINES (2 - T d or Tdap) 05/10/2022 05/10/2012 INFLUENZA VACCINE (#1) 2025 0, 08/05/2019, 08/03/2019, Additional history exists COVID-19 Vaccine (2024-2 6 season) 2025 02/03/2021, 01/14/2021 DIABETES HBA1C Q 6 MONTHS 12/03/20252024, 11/16/2024, 06/05/2024, Additional history exists RSV VACCINE (60+ or ) (1 - 1-dose 75+ series) 2038 Procedures Procedure Name Priority Date/Time Associated Diagnosis Comments MAMMO DIAGNOSTIC UNI RIGHT W OR WO CAD Routine 08/13/2013 from Last 3 Months or Most Recently Relevant to Health Maintenance Results * (ABNORMAL) MAMMO DIGITAL DIAG UNI RIGHT (08/13/2013) Anatomical Region Laterality Modality Breast Right Other us Elvira L Fawad DO MAMMO ORDERABLES Edited from Last 3 Months or Most Recently Relevant to Health Maintenance Insurance [id number] [id number] Care Teams Health It Specialist Relationship Specialty Start Date End Date Jcoelynn Wang FNP [address] [place] [address] [place] [address] PCP - General 08/25/13
== END 2025-11-07 13:47 | disposition home or self-care (01) ==
LOC: ANHFOHIMG 13:48
PROVIDERS: PCP Family Medicine; Visit Provider Obstetrics & Gynecology
DX: Z12.31 Encounter for screening mammogram for malignant neoplasm of breast (principal)
CPT/HCPCS: 77063; 77067